=== PATIENT | male | born 1960 | race Caucasian/White ===

== ENCOUNTER 2019-04-22 23:25 | Inpatient (IN) ==
--- NOTE | 2019-04-23 00:03 | PROVIDER DOCUMENTATION ---
HPI-General Adult - General Chief Complaint: Shortness of Breath Stated Complaint: MALE Time Seen by Provider: 04/22/19 23:45 Source: patient Allergies/Adverse Reactions: Patient Allergies Allergy/AdvReac Type Severity Reaction Status Date / Time Penicillins Allergy Severe ANAPHYLAXIS Verified 04/22/19 23:37 Sulfa (Sulfonamide AdvReac Unknown Verified 04/22/19 23:37 Antibiotics) Home Medications: Home Medication List Medication Instructions Recorded Confirmed Last Taken Type NK [No Home Medications] 04/23/19 04/23/19 Unknown History - History of Present Illness -Gen Adult Nature of Presenting Problems: Patient is a 58 year old white male with methamphetamine abuse, CHF, and tobacco abuse who presents with worsening 8/10 pain and redness in his scrotum for past several days. Denies fever, chest pain. Patient reports that he has been chronically sob for past 1 year. Location of Pain/Injury: reports: genitalia (scrotum) Quality of Pain: reports: aching Onset/Duration: reports: 1 week ago Timing: reports: getting worse Associated Symptoms: reports: anxiety, shortness of breath Similar Symptoms Previously?: Yes Recently seen or treated by another doctor?: No Review of Systems - Adult - REVIEW OF SYSTEMS - ADULT Constitutional: reports: chills. denies: fever Eyes: reports: no symptoms reported Ears, Nose, Mouth & Throat: reports: no symptoms reported Cardiovascular: reports: orthopnea. denies: chest pain Respiratory: reports: shortness of breath Gastrointestinal: denies: abdominal pain, nausea, vomiting Genitourinary: reports: see HPI. denies: dysuria Integumentary: reports: skin sores/ulcer (multiple skin sores over extremities and trunk) Neurological: reports: no symptoms reported Psychiatric: reports: no symptoms reported Endocrine: reports: no symptoms reported Hematologic/Lymphatic: reports: no symptoms reported Allergic/Immunologic: reports: no symptoms reported Past History - Adult - PAST MEDICAL HISTORY-ADULT Review of Records: reports: Old Records Reviewed, Nursing Assessment Review, Medications Reviewed, Social history reviewed & non-contributory. Major Childhood Illnesses: reports: denies history Cardiovascular: reports: CHF Respiratory: reports: COPD Gastrointestinal: reports: denies history Musculoskeletal: reports: denies history Neurological: reports: denies history Psychiatric: reports: anxiety Endocrine/Immune: reports: denies history - PRIOR SURGERIES/PROCEDURES Surgical/Procedure History: reports: none - IMMUNIZATION STATUS Childhood Immunizations: See Nurse Assessment Flu Vaccine: See Nurse Assessment - FAMILY HISTORY Family History: reviewed, not pertinent - SOCIAL HISTORY Smoking: greater than 1 pack/day Substance Use: amphetamines Alcohol Use Frequency: occasionally Living Situation: family Physical Exam-General - PHYSICAL EXAM-ADULT Initial Vital Signs Reviewed: Yes - CONSTITUTIONAL General Appearance: alert, no apparent distress, other (nondiaphoretic) - EYES Eyes: other (clear) - HEAD, EARS, NOSE, MOUTH & THROAT HENMT: moist mucous membranes - NECK Neck: supple - RESPIRATORY Respiratory: no respiratory distress, no accessory muscle use, decreased breath sounds - CARDIOVASCULAR Cardiovascular: regular rate, rhythm - GASTROINTESTINAL (ABDOMEN) Abdominal Exam: other (obese, multiple sores over abdomen, nontender, no rebound or guarding) - GENITOURINARY Male Genitalia: erythema (exquisitely tender red indurated enlarged scrotum with foul odor) - MUSCULOSKELETAL Back Exam: no CVA tenderness, no vertebral tenderness Extremity: erythema (indurated red swollen lower extremities with multiple skin sores), swelling, tenderness Peripheral Pulses: radial (R): 2+, radial (L): 2+ - SKIN Integumentary: erythema, swelling, tenderness - NEUROLOGIC Neurologic: grossly normal, no motor/sensory deficits - PSYCHIATRIC Psych/Mental Status: anxious Progress - PLAN OF CARE/RESULTS Progress/Plan/Lab Results: Vital Signs - 8 hr 04/22/19 23:32 Temperature 97.9 F Pulse Rate 109 H Respiratory Rate 20 Blood Pressure 129/85 O2 Sat by Pulse Oximetry 100 Orders Category Date Time Status Cardiac Monitoring DIRECTED Care 04/22/19 23:41 Active Oxygen Therapy- ED Nursing DIRECTED Care 04/22/19 23:41 Active Saline Loc NOW Care 04/22/19 23:41 Active CHEST-2 VIEWS [RAD] Stat Exams 04/22/19 23:41 Ordered BLOOD CULTURE [BLDCUL] Stat Lab 04/22/19 23:57 Uncollected CBC WITH ELECTRONIC DIFF [HEME] Stat Lab 04/22/19 23:51 Ordered CK PROFILE [SP CHEM] Stat Lab 04/22/19 23:51 Ordered COMPREHENSIVE METABOLIC PANEL [CHEM] Stat Lab 04/22/19 23:51 Ordered PRO B-NATRIURETIC PEPTIDE Stat Lab 04/22/19 23:51 Ordered PROTIME WITH INR [COAG] Stat Lab 04/22/19 23:51 Ordered PTT [COAG] Stat Lab 04/22/19 23:51 Ordered TROPONIN T Stat Lab 04/22/19 23:51 Ordered CP/SOB/Palp >45 yrs of Age Stat Oth 04/22/19 23:41 Ordered EKG [EKG] Stat Ther 04/22/19 23:41 Ordered Result Diagrams: 04/22/19 23:51 04/22/19 23:51 - EKG 1 Time of EKG reading by physician:: 23:50 EKG Read and Signed by:: Jose Luis Smith Rate: 109 Rhythm: sinus tach ST Wave: non-specific ST changes Comments: no STEMI - CONSULTS/PCP/HOSPITALIST Notification #1 *Consult/PCP/Hospitalist*: DR. Tan, hospitalist Time Discussed: 01:20 Consult Disposition: Admit Departure - Departure Date of Disposition Decision: 04/23/19 Time of Disposition Decision: 02:05 DIAGNOSIS: Cellulitis of scrotum, Methamphetamine abuse Chronic CHF Qualifiers: Heart failure type: unspecified Qualified Code(s): I50.9 - Heart failure, unspecified Disposition: ADMITTED INPATIENT 09 Certified Medical Emergency: Emergent Condition: Stable - Critical Care Note This patient required my direct & personal management of CC.: No Attestation - Physician/ GAIL Attestation Patient care was provided by Advanced Practice Provider:: No The physician spent face to face time with patient:: Yes Advanced Practice Provider documentation review:: Supervising physician onsite and consulted in the evaluation and care of this patient. The physician did have a face to face encounter with the patient.
[2019-04-23] MEDS ORDERED: VANCOMYCIN 1 GM/NS 1 GM/250 ML IVPB IV ONE (00:14)
[2019-04-23] MEDS ORDERED: MORPHINE IV ONE (00:14)
[2019-04-23] MEDS ORDERED: ZOFRAN IV ONE (00:14)
[2019-04-23 00:44] LABS: ALBUMIN 3.6 g/dL (3.5-5.0); CALCIUM 8.5 mg/dL (8.8-10.2); CREATININE 1.5 mg/dL (0.7-1.2); POTASSIUM 4.5 mmol/L (3.5-5.1); TOTAL BILIRUBIN 1.5 mg/dL (0.20-1.00)
[2019-04-23 00:55] LABS: INR 1.17; PROTIME 15.5 Seconds (11.0-16.0); PTT 28.8 Seconds (22.3-41.8)
[2019-04-23] MEDS ORDERED: MORPHINE IV PRN (01:24)
[2019-04-23] MEDS ORDERED: ZOFRAN IV PRN (01:24)
[2019-04-23 01:27] LABS: HEMOGLOBIN 13.8 g/dL (14.0-18.0); RBC 4.29 XMIL (4.7-6.1); WBC 6.95 X1000 (4.8-10.8)
[2019-04-23 01:28] LABS: HEMATOCRIT 42.9 % (42.0-52.0); MCH 32.2 PG (27-31); MCHC 32.2 g/dL (33-37); MPV 10.2 FL (7.4-10.4); PLT 170 X1000 (130-400); RDW 15.9 % (11.5-14.5)
[2019-04-23 01:31] LABS: MONO# 0.49 X1000 (0.11-0.59)
[2019-04-23 01:32] LABS: EOS# 0.14 X1000 (0.0-0.7)
[2019-04-23] MEDS ORDERED: NORCO-5 PO PRN (03:07)
[2019-04-23] MEDS ORDERED: VANCOMYCIN IV PER PHARMACY MISC SCH (03:15)
--- NOTE | 2019-04-23 03:52 | HISTORY AND PHYSICAL ---
PRIMARY CARE PHYSICIAN: None. CHIEF COMPLAINT: Scrotum pain. HISTORY OF PRESENTING ILLNESS: A 58-year-old male with a history of CHF and hypertension presents to emergency department initially at [facility] with 1-week history of having a scrotal pain and he states that it was worsening. Patient stated his scrotum was getting more red and tender and subsequently had come to the emergency department. In the ER, he was evaluated. Symptoms consistent with cellulitis and due to lack of subspecialists care he was transferred to [facility] for further management. At the time of my examination, he states that he was in moderate to severe pain in his scrotal region, however, denied any fever chills chest pain, shortness of breath or any weight changes. PAST MEDICAL HISTORY: Includes CHF and hypertension. PAST SURGICAL HISTORY: None. ALLERGIES: Penicillin and sulfa. CURRENT MEDICATION: He does not recall and nursing staff will reconcile. SOCIAL HISTORY: A 30 pack year history of smoking. Admits to social alcohol use. Admits to occasional methamphetamine use. FAMILY HISTORY: No history of coronary disease. REVIEW OF SYSTEMS: Fourteen point review of systems as listed in HPI. Other systems negative. PHYSICAL EXAMINATION: GENERAL: Cooperative, friendly male. He is resting more comfortably now. VITAL SIGNS: Temperature 98.1 degrees, pulse 107, respiration 16, blood pressure 132/100. HEENT: Atraumatic, normocephalic. Extraocular movements intact. PERRLA. NECK: No masses. CHEST: Clear to auscultation. CARDIOVASCULAR: Regular rate and rhythm. ABDOMEN: Soft, positive bowel sounds. EXTREMITIES: +1 edema. GENITOURINARY: Moderate scrotal edema and tenderness. NEUROLOGIC: Nonfocal. SKIN: Warm. LABORATORIES AND STUDIES: WBC 6.95, hemoglobin 13.8, hematocrit 42.9, platelets 170,000. Sodium 138, potassium 4.5, chloride 102, CO2 is 25, BUN is 29, creatinine is 1.5, glucose is 120. ProBNP is 12,344. ASSESSMENT: A 58-year-old male with a history of congestive heart failure and hypertension who had presented to emergency department with a 1-week history of having scrotal pain and tenderness. He was initially evaluated at [facility] and diagnosed with cellulitis and subsequently transferred to [facility] due to lack of urology subspecialist care. 1. Scrotal cellulitis. 2. Congestive heart failure. 3. Hypertension. PLAN: 1. We will admit patient to medical floor. 2. We will start patient on IV antibiotics. 3. We will consult Urology. 4. We will continue with gentle diuresis with Lasix. 5. Monitor blood pressure. Resume antihypertensive agent. 6. We will put patient on DVT prophylaxis with SCDs. 7. We will continue to follow, and reassess and make further recommendation based on patient's clinical course. cc: Kelby Tan MD MTDD
--- NOTE | 2019-04-23 03:57 | EKG Report ---
Test Performed on : 04/22/2019 11:49:17 PM Test Reason : sob Blood Pressure : / mmHG Vent. Rate : 109 BPM Atrial Rate : 109 BPM P-R Int : 152 ms QRS Dur : 074 ms QT Int : 326 ms P-R-T Axes : 062 002 118 degrees QTc Int : 439 ms Sinus tachycardia. Possible Left atrial enlargement Nonspecific T wave abnormality Abnormal ECG When compared with ECG of 04-SEP-2018 14:01, No significant change was found Unconfirmed Result
[2019-04-23] MEDS: ROCEPHIN 1 GM in NS 50 ML IV SCH (04:43)
[2019-04-23] MEDS ORDERED: VANCOMYCIN 1,250 MG in NS 250 ML IV ONE (05:00)
--- NOTE | 2019-04-23 09:33 | Diag Imaging Result Doc PS360 ---
EXAM: CHEST-2 VIEWS - 04/22/2019 HISTORY: sob TECHNIQUE: Chest two views COMPARISON: 09/08/2018 FINDINGS: Heart size is normal. There is stable mild tortuosity of the thoracic aorta. The lungs appear clear. There is no pleural effusion or pneumothorax identified. There is some thoracic spondylosis noted. IMPRESSION: No evidence of acute disease. Electronically signed by Jose Gómez 04/23/2019 9:31 AM
[2019-04-23] MEDS: XOPENEX NEB INH PRN ×3 (11:35→23:55)
--- NOTE | 2019-04-23 11:38 | CONSULTATION ---
DATE OF CONSULTATION: 04/23/2019 CONSULTING PHYSICIAN: Dr. Smith REASON FOR CONSULTATION: Scrotal abscess. HISTORY OF PRESENT ILLNESS: 58-year-old male without previous urologic history. He presents with 1-week history of scrotal pain and swelling. He reports he was working in the yard and thought he had chigger bites in his right groin. Then he reports overnight swelling to place. He denies definitive trauma. He denies similar episodes in the past. He does have CHF and reports intermittent lower extremity swelling which he self medicates with the Lasix he obtains through his cousin. He does not see regular medical doctor. He denies purulent discharge or fevers. He mainly complains of the pain and swelling. PAST MEDICAL HISTORY: Hypertension, CHF. PAST SURGICAL HISTORY: None. ALLERGIES: Sulfa and penicillin. HOME MEDICATIONS: Lasix and antihypertensive which name he does not recall. Again, he reports he obtains his medications from his cousin who also has CHF and hypertension and does not see doctors on a regular basis. SOCIAL HISTORY: He has smoked over a pack a day for 30+ years and continues to do so. He consumes alcohol. He uses methamphetamines. FAMILY HISTORY: Negative for malignancies. REVIEW OF SYSTEMS: Reviewed and 12 systems negative except for the HPI. PHYSICAL EXAMINATION: Temperature 97.4 degrees, pulse 99, blood pressure 133/86. General: No acute distress. HEENT:Normocephalic, atraumatic. Cardiovascular: Rate regular rate and rhythm. Pulmonary: Decreased bilateral breath sounds. Abdomen: Protuberant, nontender to palpation. No guarding and bowel sounds are normal. He has an umbilical hernia without evidence of incarceration. Back: No CVA tenderness. : His suprapubic area is firm to touch but no erythema or crepitants noted. His has got substantial scrotal edema without evidence of erythema fluctuance or crepitus. It appears that from edema he has some serous fluid seeping into his underwear. Again, I do not appreciate fluctuance or purulent drainage. There is no extension of the swelling to his perineum. Rectal: Deferred by patient. His penis is buried secondary to the edema. He obviously has redundant foreskin. Dermatologic: No obvious skin rashes. Neurologic: Alert and oriented x3. Psychiatric: Appropriate mood and affect. PERTINENT LABORATORY DATA: White cell count was 7000 on 04/22/2019. Creatinine is 1.5. Pertinent images none. ASSESSMENT AND PLAN: A 58-year-old male with scrotal cellulitis. He does not have any evidence of Karissa gangrene or definitive abscess at this time. I have discussed with the patient that his options are conservative observation with IV antibiotics versus incision and debridement of the scrotum. I am concerned he has suprapubic tenderness and firmness. I have discussed with the patient that he would recover faster if he were to have undergo incision debridement. He feels strongly against any surgical intervention at this point. I have discussed with him that if his condition were to progress to fulminant abscess or Karissa gangrene he would have to undergo more extensive surgery or staged surgeries. He voiced understanding and still states he does not want any surgery done at this point. PLAN: 1. Per patient wishes will observe and not proceed with incision and debridement for now. 2. Continue vancomycin, Rocephin per hospitalist service. 3. Will assess patient tomorrow. Thank for the consultation. cc: Santi Cortez MD
--- NOTE | 2019-04-23 11:47 | PROGRESS NOTE ---
DATE: 04/23/2019 SUBJECTIVE: This morning, Mr. Del Angel referred to be feeling a lot better. He said his scrotal swelling seems to be going down. OBJECTIVE: Vital Signs: Blood pressure is 122/73, pulse of 98, respirations 18, temperature is 98 degrees, the patient was saturating 99% on room air. General: Mr. Del Angel is a 58-year-old gentleman. He is in bed. He is no cardiopulmonary distress. HEENT: Mucosa is pink and moist. Anicteric. Acyanotic. Neck: Supple. There is positive JVD. Respiratory: Air entry is bilaterally reduced. There are diffuse bilateral wet crackles in both lung dobson. The patient did have some diffuse wheezing as well. Cardiovascular: Regular rate and rhythm. [place] beat seems to be at fifth intercostal space, midclavicular line. No murmurs, no rubs. Abdomen: Soft, nontender. Bowel sounds present. Extremities: About 3+ pedal edema. Distal pulses are present. : Scrotum is remarkably swollen, but no tenderness. It appears just to be part of the generalized edema process. IMAGING: A chest x-ray this morning shows no evidence of acute disease. ASSESSMENT: 1. Anasarca secondary to congestive heart failure. 2. Acute on chronic congestive heart failure. The patient's previous echocardiogram from 2018 shows ejection fraction of 25% with severely reduced systolic function. 3. Severe dilated cardiomyopathy, probably nonischemic. However, I do not see any ischemic workup on his file. We will get Cardiology to evaluate him, and then go from there. 4. Scrotal swelling. The patient has been started on antibiotics. He thinks he is looking better. I am not sure if there was any superimposed cellulitis to the scrotal swelling, but this morning, the scrotal swelling just seems to be part of the whole anasarca picture. We are pending Urology to evaluate the patient as well. 5. Tobacco abuse. The patient has been counseled. 6. History of drug use (methamphetamine). The patient has been counseled. This morning, we are going to start Mr. Del Angel on intravenous Lasix, also losartan. When he is euvolemic, we will start him also on a beta olena. We will get an echocardiogram, and then also get Cardiology to evaluate him. He is currently on antibiotics. I have discontinued the vancomycin, and will be pending Urology evaluation on his scrotal cellulitis. cc: Brody Dias MD
[2019-04-23] MEDS: COZAAR PO SCH (13:37)
[2019-04-23] MEDS: LASIX IV SCH ×2 (13:37→23:01)
[2019-04-23 15:56] LABS: URINE SOURCE CLEAN CATCH
[2019-04-23 16:05] LABS: BILIRUBIN URINE NEGATIVE (NEGATIVE); BLOOD URINE NEGATIVE (NEGATIVE); COLOR YELLOW; GLUCOSE URINE NEGATIVE (NEGATIVE); KETONE URINE NEGATIVE (NEGATIVE); LEUKOCYTES URINE NEGATIVE (NEGATIVE); NITRITE URINE NEGATIVE (NEGATIVE); PROTEIN URINE 30 mg/dL (NEGATIVE); SP GRAVITY URINE 1.013; TURBIDITY URINE CLEAR (CLEAR); UROBILINOGEN URINE NORMAL (NORMAL)
[2019-04-23 16:07] LABS: UR EPITHELIAL CELLS <10 /HPF (<10); URINE BACTERIA NEGATIVE /HPF; URINE RBC <10 /HPF (<10); URINE WBC <10 /HPF (<10)
--- NOTE | 2019-04-23 16:26 | CONSULTATION ---
DATE OF CONSULTATION: 04/23/2019 IMPRESSION: 1. Acute on chronic systolic heart failure, biventricular with right greater than left, and associated edema, as well as scrotal edema and possible ascites. 2. Severe cardiomyopathy with left ventricular ejection fraction by echocardiography 1 year ago. 3. Hypertension. 4. Medical noncompliance. 5. Polysubstance abuse with history of methamphetamine use as well as previous history of heavy alcohol use in the past. Patient reported only drinks modest amounts of alcohol currently. 6. Chronic cigarette use, ongoing. RECOMMENDATIONS: 1. Agree with losartan being initiated. 2. Diurese with intravenous Lasix. 3. Repeat echocardiography. HISTORY: This 58-year-old white male with a past history of severe cardiomyopathy with left ventricular ejection fraction by echocardiography last year was admitted with scrotal pain and swelling. He was found to have evidence of congestive heart failure and cardiology was consulted. He was hospitalized 1 year ago or so with congestive heart failure. He was hospitalized at [facility] here in [place]. Echocardiography indicated left ventricular ejection fraction of 25%. He was diuresed and started on heart failure medical regimen. He was discharged thereafter to have follow up with cardiology. However, he did not follow up with Cardiology and has been without prescriptions for some time. He indicates that he has been getting some occasional Lasix from his family. He has chronic edema as well as exertional shortness of breath consistent with [place] Heart Association class 3 status. A week ago he started having scrotal edema and discomfort. This progressed, prompting him to come in. He is felt to have scrotal cellulitis. He is being treated with parenteral antibiotics. He relates he only drinks infrequent alcoholic beverage and he has a past history of heavy alcohol use. He uses methamphetamine occasionally. He smokes 1 pack of cigarettes per day and previously smoked 2 packs of cigarettes per day. PAST MEDICAL HISTORY: 1. Cardiomyopathy. 2. Hypertension. ALLERGIES: Penicillin and sulfa. MEDICATIONS: He was on no medications prior to admission other than occasional Lasix which he obtained from his brother. SOCIAL HISTORY: He has a history of heavy cigarette use for many years and currently smokes 1 pack of cigarettes per day. He drinks occasional alcoholic beverage. He has a history of heavy alcohol use in the past. He also uses methamphetamine occasionally. 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 FAMILY HISTORY: Negative for premature coronary disease. REVIEW OF SYSTEMS: Pulmonary: Noteworthy for exertional shortness of breath but negative for orthopnea. Gastrointestinal: Negative. Constitutional: Negative. Remainder of review of systems negative/noncontributory with 14 total systems reviewed. PHYSICAL EXAMINATION: General: This is a middle-aged white male in no acute distress, on room air. Vital signs: Blood pressure 133/88, heart rate 92 and regular, oxygen saturation 98% on room air. HEENT: Extraocular muscles appear intact. Mucous membranes are moist. Neck: Supple. Jugular distention is evident, consistent with significantly elevated central venous pressure. There are no carotid bruits. Chest: Clear to auscultation. Cardiac: Reveals a regular rate and rhythm without appreciable murmur or gallop. Abdomen: Soft. Bowel sounds are normal. Extremities: Demonstrate 2+ to 3+ edema with significant induration, consistent with chronic edema. Neurologic: Reveals him to be alert and fully oriented. Speech is fluent. He moves all 4 extremities equally well. Skin: Warm and dry. DIAGNOSTIC DATA: Twelve lead EKG demonstrates sinus tachycardia, left atrial abnormality, and nonspecific T-wave abnormality. LABORATORY DATA: Includes white blood cell count 6.95, hematocrit 42.9, hemoglobin 13.8, MCV 100, platelet count 170,000. Sodium 138, potassium 4.5, chloride 102, carbon dioxide 25, BUN 29, creatinine 1.5. Troponin T less than 0.01. Pro B-natriuretic peptide level 12,344. Albumin 3.6. cc: Ellis Bal MD
[2019-04-23 16:37] LABS: UR AMPHETAMINES QUAL PRESUMPTIVE POSITIVE (NONE DETECT); UR BARBITUATES QUAL NONE DETECTED (NONE DETECT); UR BENZODIAZEPIN QUAL NONE DETECTED (NONE DETECT); UR COCAINE QUAL NONE DETECTED (NONE DETECT); UR OPIATES QUAL PRESUMPTIVE POSITIVE (NONE DETECT)
[2019-04-23 16:38] LABS: UR CANNABINOIDS QUAL NONE DETECTED (NONE DETECT); UR METHADONE QUAL NONE DETECTED (NONE DETECT); UR OXYCODONE QUAL NONE DETECTED (NONE DETECT); UR PCP QUAL NONE DETECTED (NONE DETECT)
[2019-04-24] MEDS ORDERED: VANCOMYCIN 2,000 MG in NS 500 ML IV SCH (05:00)
[2019-04-24] MEDS: ROCEPHIN 1 GM in NS 50 ML IV SCH (05:45)
[2019-04-24 07:27] LABS: BASO# 0.04 X1000 (0.0-0.2); BASO% 0.5 % (0.0-0.8); EOS# 0.22 X1000 (0.0-0.7); HEMATOCRIT 42.7 % (42.0-52.0); HEMOGLOBIN 13.7 g/dL (14.0-18.0); LYMPH# 0.93 X1000 (1.2-3.4); LYMPH% 12.6 % (20.5-51.1); MCH 32.2 PG (27-31); MCHC 32.1 g/dL (33-37); MCV 100.2 FL (81-99); MONO% 13.5 % (1.7-9.3); MPV 10.3 FL (7.4-10.4); NEUT# 5.21 X1000 (1.4-6.5); NEUT% 70.4 % (42.2-75.2); PLT 178 X1000 (130-400); RBC 4.26 XMIL (4.7-6.1); RDW 15.6 % (11.5-14.5)
[2019-04-24 07:43] LABS: AGAP 10; BUN 30 mg/dL (8-22); CALCIUM 8.3 mg/dL (8.8-10.2); CHLORIDE 96 mmol/L (98-107); CHOLESTEROL 123 mg/dL (0-200); COSMO 278; CREATININE 1.5 mg/dL (0.7-1.2); ESTIMATED GFR 48; GLUCOSE 93 mg/dL (70-104); HDL 41 mg/dL (35-55); LDL 73 mg/dL; POTASSIUM 4.2 mmol/L (3.5-5.1); SODIUM 136 mmol/L (136-145); TCO2 30 mmol/L (25-35); TRIGLYCERIDES 46 mg/dL (39-160); VLDL 9 mg/dL
[2019-04-24] MEDS: XOPENEX NEB INH PRN ×3 (07:49→16:00)
[2019-04-24] MEDS: COZAAR PO SCH (09:58)
[2019-04-24] MEDS: LASIX IV SCH ×2 (10:27→22:46)
--- NOTE | 2019-04-24 14:22 | PROGRESS NOTE ---
DATE: 04/24/2019 SUBJECTIVE: This morning Mr. Del Angel refers to be feeling a little better. Shortness of breath is getting better and scrotal swelling seems to also been getting better. OBJECTIVE: Vitals: Blood pressure is 115/66, pulse of 93, respiration is 16, temperature 98.1 degrees. General: Mr. Del Angel is a 58-year-old gentleman he is in bed, no distress. Mucosa is pink and moist. Anicteric. Acyanotic. Neck: Supple. Chest: Air entry is bilateral reduced. There is still some diffuse crackles in both lung dobson posteriorly. There is also some wheezing as well. Cardiovascular: Regular rate and rhythm. Abdomen: Soft, minimally distended but nontender. Bowel sounds present. Extremities: About 2+ pedal edema. : Scrotum continues to be remarkably swollen but no tenderness. Minimum erythematous changes but no fluctuance. There is some seeping of fluid into the underwear. 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 LABORATORY DATA: CBC is reviewed unremarkable except for microcytosis. Chemistries reviewed, creatinine continues to be 1.5. ASSESSMENT: 1. Anasarca secondary to congestive heart failure. The patient continues to be on diuretic therapy. 2. Acute on chronic congestive heart failure. Previous echocardiogram showed an ejection fraction of 25%. We still pending a repeat echocardiogram today. 3. Severe dilated cardiomyopathy probably nonischemic. Cardiology is on board. Will follow up with their further recommendations. 4. Scrotal swelling most likely related to the generalized anasarca. 5. Tobacco abuse. Patient has been counseled. 6. History of drug abuse (methamphetamine) patient counseled. 7. Renal failure seems to be acute on chronic. We are going to continue to keep eye on the creatinine. So for today we going to continue with the diuretic therapy. Patient is also on antibiotics for suspicion of cellulitis to the scrotum. Patient is being seen by Cardiology and Urology, we are going to continue further recommendations from them. Will repeat his electrolytes tomorrow. Will also continue to observe strict I's and O's. cc: Brody Dias MD MTDJolanta
--- NOTE | 2019-04-24 15:22 | PROGRESS NOTE ---
DATE: 04/24/2019 SUBJECTIVE: Patient denies shortness of breath. He denies chest pain. He continues on room air. He reports vigorous diuresis. I's and O's not adequately recorded. Specifically, urine output not recorded. OBJECTIVE: Vital Signs: Blood pressure 115/66, heart rate 93, oxygen saturation 100% on room air. Neck: Significant jugular venous distention is still present consistent with significantly elevated central venous pressure. Chest: Clear to auscultation bilaterally. Cardiac: Reveals a regular rate and rhythm without appreciable murmur or gallop. Extremities: Demonstrate moderate to severe lower extremity edema with some woody edema consistent with chronic edematous state. LABORATORY DATA: White blood cell count of 7.4, hematocrit 42.7, hemoglobin 13.7, platelet count 178,000. Sodium 136, potassium 4.2, chloride 96, carbon dioxide 30, BUN 30, creatinine 1.5, glucose 93. Triglycerides 46, total cholesterol 123, LDL cholesterol 73, HDL cholesterol 41. Urine drug screen obtained on admission, positive for opiates and amphetamines. IMPRESSIONS: 1. Acute on chronic systolic heart failure, biventricular with right-sided failure greater than left, associated edema as well as scrotal edema and possible ascites. 2. Severe cardiomyopathy. 3. Hypertension. 4. Medical noncompliance. 5. Polysubstance abuse. 6. Chronic cigarette use. RECOMMENDATIONS: 1. Continue diuresis with intravenous Lasix. 2. Continue losartan. 3. Follow up echocardiography. 4. Add low-dose metoprolol. cc: Ellis Bal MD
[2019-04-24] MEDS: TOPROL XL PO SCH (16:24)
--- NOTE | 2019-04-25 00:08 | ECHO REPORT ---
ORDER DATE: 04/23/2019 MEASUREMENTS: Septal thickness 1.4, left ventricular internal diameter diastole 4.4, posterior wall thickness 1.4, aortic root 3.0, left atrium 3.9. SUMMARY: 1. Fair quality study. 2. Aortic valve is trileaflet and opens normally on 2-dimensional images. Peak gradient across aortic valve is less than 5 mmHg. Mitral, tricuspid and pulmonic valves are without evidence of structural abnormality. There is moderate tricuspid regurgitation. The estimated systolic PA pressure by Doppler is 40 mmHg suggesting mild pulmonary hypertension. Aortic root is normal in size. 3. Normal left ventricular chamber size with mild concentric left hypertrophy is demonstrated. Estimated left ejection fraction approximately 25% in the setting of global hypokinesis. Left atrium is mildly enlarged. The right atrium is moderately enlarged. The right ventricle is mild to moderately enlarged with moderately reduced right ventricular systolic function. 4. Small posterior pericardial effusion demonstrated. 5. Appearance of inferior vena cava suggests significantly elevated central venous pressure. cc: MD Brody Will MD
[2019-04-25] MEDS: ROCEPHIN 1 GM in NS 50 ML IV SCH (04:56)
[2019-04-25 08:00] LABS: AGAP 9; ALBUMIN 3.1 g/dL (3.5-5.0); BUN 24 mg/dL (8-22); CALCIUM 8.4 mg/dL (8.8-10.2); CHLORIDE 96 mmol/L (98-107); COSMO 278; CREATININE 1.2 mg/dL (0.7-1.2); ESTIMATED GFR > 60; GLUCOSE 97 mg/dL (70-104); IRON SATURATION 37 %; PHOSPHORUS 3.6 mg/dL (2.7-4.5); POTASSIUM 4.2 mmol/L (3.5-5.1); SODIUM 137 mmol/L (136-145); TCO2 32 mmol/L (25-35); TIBC 295 ug/dL; TOTAL IRON 109 ug/dL (53-167); UNBOUND IRON 186 ug/dL (112-346)
[2019-04-25] MEDS: XOPENEX NEB INH PRN ×3 (08:04→19:30)
[2019-04-25 08:35] LABS: TSH 2.93 uIUmL (0.27-4.20)
[2019-04-25] MEDS: TOPROL XL PO SCH (08:57)
[2019-04-25] MEDS: LASIX IV SCH ×2 (08:58→20:49)
[2019-04-25] MEDS: COZAAR PO SCH (08:58)
--- NOTE | 2019-04-25 12:49 | PROGRESS NOTE ---
DATE: 04/25/2019 SUBJECTIVE: This morning, Mr. Del Angel refers to be doing a whole lot better. He thinks the swelling is going down. Denies any complaint. OBJECTIVE: Vital Signs: Blood pressure is 100/59, pulse of 90, respirations are 20, temperature is 97.9 degrees. General Examination: Mr. Del Angel is a 58-year-old, male. He is in bed, not seemingly distressed. HEENT: Mucosa is pink and moist. Anicteric. Acyanotic. Neck: Supple. Mild JVD this morning. Chest: Air entry is bilaterally reduced. A few crackles posteriorly but it sounds a lot better than yesterday. Cardiovascular: Regular rate and rhythm. No murmurs, no rubs, no gallops. GI: Abdomen is soft. It is distended but nontender. Bowel sounds present. Extremities: About 2+ pedal edema. Scrotum is also swollen but seems to be shrinking some. 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 Laboratory Data: Chemistry is reviewed. The creatinine has normalized. So far, blood cultures have been negative. ASSESSMENT: 1. Anasarca secondary to congestive heart failure. Patient continues to be on diuretic therapy. We are going to add oral spironolactone. 2. Acute on chronic congestive heart failure. Echocardiogram shows an ejection fraction of 25% in the setting of global hypokinesis which is pretty much the same as the one done in December 2017. 3. Severe dilated cardiomyopathy, probably nonischemic. Cardiology is on board. We will follow up with further recommendations from them. 4. Scrotal swelling, most likely due to the generalized anasarca. I think the mild erythematous changes were all just as a result of the swollen scrotum. It does not appear to be infected. At this point, I would discontinue the antibiotics. 5. Tobacco abuse. The patient has been counseled. 6. History of drug abuse (amphetamine). 7. Acute kidney injury, has resolved. PLAN: In general, Mr. Del Angel seems to be doing a lot better. He diuresed about 750 yesterday. He has a negative balance of just 200. I am not sure if this is a true documentation of what his Is and Os are but in general, he seems to be doing a lot better. We are going to continue with the current medications, IV diuretics. I am going to add Aldactone to enhance the loop diuretic effect. cc: Brody Dias MD
[2019-04-25 13:37] LABS: HEPATITIS PROFILE ACUTE SEE COMMENTS
[2019-04-25] MEDS: ALDACTONE PO SCH (13:39)
[2019-04-26] MEDS: ROCEPHIN 1 GM in NS 50 ML IV SCH (04:49)
[2019-04-26] MEDS: TOPROL XL PO SCH (09:53)
[2019-04-26] MEDS: LASIX IV SCH ×2 (09:53→20:33)
[2019-04-26] MEDS: COZAAR PO SCH (09:53)
[2019-04-26] MEDS: ALDACTONE PO SCH (09:53)
--- NOTE | 2019-04-26 11:27 | PROGRESS NOTE ---
DATE: 04/25/2019 SUBJECTIVE: Mr. Del Angel reports no events overnight. He states he still has scrotal discomfort, but his swelling is down some. He still feels strongly against any surgical intervention if possible. OBJECTIVE: Vital Signs: T 97.9 degrees, P 90, BP 100/59. General: No acute distress. Abdomen: Protuberant, nontender to palpation. : Persistently edematous scrotum. His suprapubic firmness has improved. There was no evidence of fluctuance, crepitus or purulent discharge noted. PERTINENT LABORATORY DATA: None today. ASSESSMENT AND PLAN: A 58-year-old male with scrotal cellulitis, as well as edema, who has mildly improved on intravenous antibiotics. Again, there is no evidence of Karissa gangrene or definitive abscess. The patient once again continues to feel strongly about conservative observation and feels strongly against surgery. PLAN: 1. Continue antibiotics per primary team. 2. We will observe for now. cc: Santi Cortez MD
[2019-04-26] MEDS ORDERED: PREDNISONE PO ONE (12:18)
--- NOTE | 2019-04-26 14:55 | PROGRESS NOTE ---
DATE: 04/26/2019 SUBJECTIVE: This morning Mr. Del Angel refers to be doing a whole lot better. He thinks swelling is remarkably improving. However, he still has some wheezing. OBJECTIVE: Vital Signs: Blood pressure 119/73, pulse of 100, respirations 18, and temperature 97.7 degrees. General: Mr. Del Angel is a 58-year-old gentleman. He was in bed no distress. HEENT: Mucosa is pink and moist. Anicteric. Acyanotic. Neck: Supple. Chest: Air entry is bilaterally reduced. There are still some end expiratory wheezing. No crackles. Cardiovascular: Regular rate and rhythm. No murmurs. Abdomen: Soft, distended, but nontender. There is positive fluid shift. Extremities: About 1+ pedal edema. Scrotum swelling has significantly improved. 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 LABORATORY DATA: Reviewed. The patient's iron studies are within normal range and B12 and folate are normal. ASSESSMENT: 1. Anasarca on presentation secondary to congestive heart failure with reduced ejection fraction improved. 2. Acute on chronic heart failure with ejection fraction of 25% in the setting of global hypokinesis. The patient's EF has remained fairly stable since last year. 3. Severe dilated cardiomyopathy, probably nonischemic. Cardiology is on board. 4. Scrotal swelling, most likely due to the generalized anasarca with possible mild scrotal cellulitis. The patient is on antibiotics. Urology prefers to continue with that. We will continue. 5. Tobacco abuse. Patient has been counseled. 6. History of drug abuse, counseled. 7. Acute kidney injury, resolved, probably due to cardiorenal syndrome. 8. Bronchospasm, most likely COPD exacerbation. The patient is already on nebulization and antibiotics. I will start him on oral steroid therapy. PLAN: In general, Mr. Del Angel is doing a lot better. His swelling has remarkably improved. His current urine output was about 2275 last night. He is currently negative balance, and he is losing weight. He is clinically improving. We are going to continue with the current IV diuretics for another day, and hopefully we can switch it to something to oral regimen and get him home hopefully tomorrow. cc: Brody Dias MD
[2019-04-26] MEDS: XOPENEX NEB INH PRN ×2 (15:41→19:33)
--- NOTE | 2019-04-26 20:24 | PROGRESS NOTE ---
DATE: 04/26/2019 SUBJECTIVE: Patient denies shortness of breath or chest discomfort on room air. He reports feeling better. OBJECTIVE: Vital Signs: Blood pressure 118/61, heart rate 95, oxygen saturation 100% on room air. Neck: Jugular venous distention appears to have decreased and appears to be upper normal to mildly elevated. Chest: Clear to auscultation bilaterally. Cardiac Exam: Reveals a regular rate and rhythm without appreciable murmur or gallop. Extremities: Demonstrate trace to mild edema with stasis changes. LABORATORY DATA: Includes sodium 137, potassium 4.2, chloride 96, carbon dioxide 32, BUN 24, creatinine 1.2. Albumin 3.1. IMPRESSION: 1. Acute on chronic systolic heart failure, biventricular with right ventricular failure greater than left ventricular failure. The patient has improved with diuresis. 2. Severe cardiomyopathy. 3. Hypertension. 4. Medical noncompliance. 5. Polysubstance abuse. 6. Chronic cigarette use. RECOMMENDATIONS: 1. Transition to oral Lasix. 2. Continue losartan. 3. Add low-dose Coreg. Continue low-dose metoprolol. 4. Continue spironolactone. 5. Reasonable for patient to be discharged home in the next 24 hours. cc: Ellis Bal MD
--- NOTE | 2019-04-27 03:21 | PROGRESS NOTE ---
DATE: 04/26/201 SUBJECTIVE: Mr. Del Angel denies events overnight. He reports his scrotal swelling and pain have significantly improved. OBJECTIVE: Vital signs: T 97.7 degrees, P 100, BP 119/73. General: No acute distress. Abdomen: Scaphoid, nontender to palpation. Genitourinary: His scrotal edema is nearly resolved, he no longer has suprapubic firmness. Still no evidence of crepitus or fluctuance noted. His testes are bilateral without masses appreciated. PERTINENT LABORATORY DATA: None today. ASSESSMENT AND PLAN: A 58-year-old male who with scrotal cellulitis, which has responded well to observation and antibiotics. He has been on Rocephin. I have discussed with the patient that he is unlikely to need urologic intervention unless his condition were to worsen, and that it is reasonable for him to be discharged home. I would recommend sending him home with Keflex or clindamycin, Keflex being the likely better choice given his tolerance of Rocephin. PLAN: 1. No further intervention needed at this time. 2. I recommend a week of antibiotics, if okay with Dr. Dias. 3. Patient is welcome to make an appointment with me in clinic if he so desires within 1 to 2 weeks. cc: Santi Cortez MD
[2019-04-27] MEDS: ROCEPHIN 1 GM in NS 50 ML IV SCH (05:53)
[2019-04-27 07:53] LABS: HEMATOCRIT 46.3 % (42.0-52.0); HEMOGLOBIN 15.2 g/dL (14.0-18.0); MCH 32.9 PG (27-31); MCHC 32.8 g/dL (33-37); MCV 100.2 FL (81-99); MPV 10.7 FL (7.4-10.4); RBC 4.62 XMIL (4.7-6.1); RDW 15.5 % (11.5-14.5); WBC 10.95 X1000 (4.8-10.8)
[2019-04-27] MEDS: TOPROL XL PO SCH (08:12)
[2019-04-27] MEDS: ALDACTONE PO SCH (08:13)
[2019-04-27] MEDS: COZAAR PO SCH (08:13)
[2019-04-27 08:34] LABS: AGAP 12; ALBUMIN 3.5 g/dL (3.5-5.0); BUN 27 mg/dL (8-22); CALCIUM 8.9 mg/dL (8.8-10.2); CHLORIDE 93 mmol/L (98-107); COSMO 280; ESTIMATED GFR > 60; GLUCOSE 109 mg/dL (70-104); PHOSPHORUS 4.2 mg/dL (2.7-4.5); POTASSIUM 3.9 mmol/L (3.5-5.1); SODIUM 137 mmol/L (136-145); TCO2 32 mmol/L (25-35)
--- NOTE | 2019-04-27 08:39 | Diag Imaging Result Doc PS360 ---
EXAM: CHEST-2 VIEWS 04/27/2019 HISTORY: hypoxia TECHNIQUE: PA and lateral chest COMMENT: The heart size and primary vascularity are within normal limits. There may be some thickening or a small amount of fluid in the minor fissure on the right otherwise are has been no significant change since 04/22/2019. IMPRESSION: The possibility of a very small pleural effusion on the right cannot be excluded. Electronically signed by Karlo Pathak 04/27/2019 8:37 AM
[2019-04-27] MEDS: XOPENEX NEB INH PRN ×2 (08:43→11:11)
[2019-04-27] MEDS ORDERED: LASIX PO SCH (09:00)
[2019-04-27] MEDS ORDERED: PREDNISONE PO SCH (09:00)
[2019-04-27 11:31] VITALS: BP 112/62
[2019-04-27 13:33] LABS: HCV BY PCR SEE COMMENTS
--- NOTE | 2019-04-27 22:11 | DISCHARGE SUMMARY ---
ADMISSION DATE: 04/23/2019 DISCHARGE DATE: 04/27/2019 DISPOSITION: Is to home. FOLLOW-UP: 1. Dr. Bal. 2. Dr. Cortez. CONSULTATION DURING THIS ADMISSION: Cardiology was consulted. Patient was seen by Dr. Bal. Urology was consulted. Patient was seen by Dr. Cortez. INVASIVE PROCEDURES DONE DURING THIS ADMISSION: None. IMAGING STUDIES OF SIGNIFICANCE: 1. A chest x-ray initially showed no evidence of acute disease. 2. Echocardiogram did show ejection fraction of 25% with global hypokinesis. 3. A repeat chest x-ray showed possibility of very small pleural effusions. ADMISSION DIAGNOSES: 1. Scrotal cellulitis. 2. Congestive heart failure. 3. Hypertension. DIAGNOSIS AT THE TIME OF DISCHARGE: 1. Anasarca on presentation secondary to congestive heart failure with reduced ejection fraction. 2. Acute on chronic congestive heart failure with ejection fraction of 25% in the setting of global hypokinesis. 3. Severe dilated cardiomyopathy, probably nonischemic. 4. Scrotal swelling in the setting of general generalized anasarca with possible superimposed cellulitis. This has significantly improved. The patient was evaluated by urology. 5. Tobacco abuse. Patient has been counseled. 6. History of recreational drug use. 7. Acute kidney injury presumably cardiorenal syndrome. Resolved. 8. Chronic obstructive pulmonary disease with mild exacerbation. Improved. DISCHARGE MEDICATIONS: 1. Spironolactone 25 mg p.o. daily. 2. Furosemide 40 mg p.o. daily. 3. Prednisone 20 mg p.o. daily for 5 days. 4. Spiriva inhaler. 5. Metoprolol 12.5 daily. 6. Azithromycin 250 p.o. daily. 7. Doxycycline 100 mg p.o. b.i.d. 8. Losartan mg p.o. daily. 9. Albuterol inhaler as needed. PRESENTING COMPLAINT: Scrotum pain. HISTORY OF PRESENT COMPLAINT: Mr. Del Angel is a 58-year-old gentleman who is known to have CHF, hypertension presented to presented to the hospital because off generalized swelling, more remarkably in his scrotum associated with some erythematous changes. He initially presented to [facility] and was transferred to [facility] for higher level of care. HOSPITAL COURSE: Mr. Del Angel was admitted to the medical floor under tele monitoring. He was started on IV diuretic therapy and IV antibiotics. Cardiology and urology were consulted. Throughout the hospital course, Mr. Del Angel continues to have a negative fluid balance, swelling continues to reduce. His scrotal swelling remarkably improve. This morning it is completely gone. The possible superimposed cellulitis has also significantly improved. The patient was evaluated by Dr. Cortez, the urologist, throughout the hospital course. The patient was also seen by Dr. Bal, the fish housekeeper, who made some changes to the patient's medications and he tolerated all that during the hospital course. This morning, Mr. Del Angel refers to be feeling a lot better. He is currently 1950- balance. His vitals are stable with a blood pressure of 112/62, pulse of 105, respirations 16, temperature 98.0 degrees. Patient is saturating 97% on room air. PHYSICAL EXAM: Shows some 1+ pedal edema. Scrotal swelling is completely gone. The wheezing and the chest findings have all resolved we think Mr. Del Angel is clinically stable for discharge. Unfortunately Mr. Del Angel does not have any insurance or outpatient follow-up, so case management have been consulted to provide any services that he could be needing on an outpatient basis to help get a physician as well as medication assistance. Mr. Del Angel will also follow up with Cardiology and with Urology. TIME SPENT FOR DISCHARGE: 36 minutes. cc: MD Santi Morel MD William D. Denney, MD
== END 2019-04-27 16:00 | disposition home or self-care (01) | DRG 291 ==
LOC: P.ED 23:25 → 3N 23:25 → SUATTDRO 04-23 01:41 → OBSVTOIN 04-23 01:41
PROVIDERS: ATTEND Internal Medicine
CPT/HCPCS: 71020; 71046; 80048; 80053; 80061; 80069; 80074; 80101; 80301; 80307; 80320; 80324; 80345; 80346; 80353; 80358; 80361; 80365; 81001; 82055; 82550; 82607; 82728; 82746; 83540; 83550; 83605; 83880; 83992; 84443; 84484; 85025; 85027; 85610; 85730; 87040; 87522; 93005; 93306; 94640; 94761; 96365; 96366; 96375; 99285; A9270; G0431; G0434; G0479; G0480; G6040; J0696; J1940; J2270; J2405; J3370; J7050; J7506; J7512

== ENCOUNTER 2019-10-26 21:07 | Inpatient (IN) ==
[2019-10-26 23:48] LABS: BASO# 0.03 X1000 (0.0-0.2); BASO% 0.4 % (0.0-0.8); EOS# 0.08 X1000 (0.0-0.7); HEMOGLOBIN 13.9 g/dL (14.0-18.0); IMM GRAN# 0.02 X1000 (0.0-0.04); IMM GRAN% 0.2 % (0.0-0.5); LYMPH# 1.46 X1000 (1.2-3.4); LYMPH% 17.5 % (20.5-51.1); MCH 30.6 PG (27-31); MCHC 32.3 g/dL (33-37); MCV 94.7 FL (81-99); MONO# 1.05 X1000 (0.11-0.59); MONO% 12.6 % (1.7-9.3); MPV 11.1 FL (7.4-10.4); NEUT# 5.71 X1000 (1.4-6.5); NEUT% 68.3 % (42.2-75.2); PLT 184 X1000 (130-400); RBC 4.54 XMIL (4.7-6.1); RDW 15.4 % (11.5-14.5); WBC 8.35 X1000 (4.8-10.8)
[2019-10-27 00:13] LABS: ALBUMIN 3.9 g/dL (3.5-5.0); CALCIUM 8.8 mg/dL (8.8-10.2); CREATININE 2.5 mg/dL (0.7-1.2); POTASSIUM 4.8 mmol/L (3.5-5.1); TOTAL BILIRUBIN 3.4 mg/dL (0.20-1.00); TOTAL PROTEIN 7.7 g/dL (6.3-8.3)
[2019-10-27 00:26] LABS: CK INDEX 6.5 (0.0-2.5); CK-MB 14.93 ng/mL (0.0-5.0)
[2019-10-27] MEDS ORDERED: LASIX IV ONE (00:36)
--- NOTE | 2019-10-27 00:48 | PROVIDER DOCUMENTATION ---
This chart was entered by Thais Mckeon Scribe, acting as scribe for Monroe Fofana MD. HPI-General Adult - General Chief Complaint: Extremity Pain Stated Complaint: FOOT COMPLAINT Time Seen by Provider: 10/26/19 21:28 Source: patient Allergies/Adverse Reactions: Patient Allergies Allergy/AdvReac Type Severity Reaction Status Date / Time Penicillins Allergy Severe ANAPHYLAXIS Verified 04/22/19 23:37 Sulfa (Sulfonamide AdvReac Unknown Verified 04/22/19 23:37 Antibiotics) Home Medications: Home Medication List Medication Instructions Recorded Confirmed Last Taken Type Furosemide [Lasix] 40 mg PO DAILY #120 tab 04/27/19 10/26/19 Unknown Rx Losartan [Cozaar] 50 mg PO DAILY #240 tab 04/27/19 10/26/19 Unknown Rx Metoprolol Succinate E.r. [Toprol 12.5 mg PO DAILY #120 tab 04/27/19 10/26/19 Unknown Rx Xl] - History of Present Illness -Gen Adult Nature of Presenting Problems: pt is a 59 yr old male presenting with 1 month complaint of bilateral lower leg/feet edema, discoloration and pain, pt reports worsening. pt also reports increased shortness of breath. pt denies any chest pain. pt admits hx of CHF Location of Pain/Injury: reports: lower extremity, feet Pain Radiation: reports: no radiation Quality of Pain: reports: burning (burning/prickly pain to bilateral feet/lower legs) Severity: reports: severe Onset/Duration: reports: other (1 month) Context/Activities at Onset: reports: none Modifying Factors: improves with: nothing Associated Symptoms: reports: cough, fatigue, nausea, shortness of breath, sensory/motor loss, trouble walking. denies: chest pain, diaphoresis, fever/chills, genitourinary problems, muscle aches, sinus congestion/drainage Similar Symptoms Previously?: No Recently seen or treated by another doctor?: No Review of Systems - Adult - REVIEW OF SYSTEMS - ADULT Constitutional: reports: fatique. denies: fever Eyes: reports: no symptoms reported Ears, Nose, Mouth & Throat: reports: no symptoms reported Cardiovascular: reports: edema. denies: chest pain, palpitations, syncope Respiratory: reports: cough, dyspnea on exertion, shortness of breath. denies: excessive sputum production, wheezing Gastrointestinal: reports: nausea. denies: abdominal pain, vomiting Genitourinary: reports: no symptoms reported Musculoskeletal: reports: no symptoms reported Integumentary: reports: other (edema, discoloration and multiple sores to bilateral feet/lower legs) Neurological: denies: dizziness/vertigo, headache/migraines, numbness Psychiatric: reports: no symptoms reported Endocrine: reports: no symptoms reported Hematologic/Lymphatic: reports: no symptoms reported Allergic/Immunologic: reports: no symptoms reported All Other Systems: Reviewed and Negative Past History - Adult - PAST MEDICAL HISTORY-ADULT Review of Records: reports: Old Records Reviewed, Nursing Assessment Review, Medications Reviewed, Social history reviewed & non-contributory. Major Childhood Illnesses: reports: denies history Cardiovascular: reports: CHF Respiratory: reports: COPD Gastrointestinal: reports: denies history Obstetrical/Gynecological: reports: denies history Genitourinary: reports: denies history Musculoskeletal: reports: denies history Neurological: reports: denies history Psychiatric: reports: anxiety Endocrine/Immune: reports: denies history Other Conditions: reports: denies history - PRIOR SURGERIES/PROCEDURES Surgical/Procedure History: reports: none - IMMUNIZATION STATUS Childhood Immunizations: See Nurse Assessment Flu Vaccine: See Nurse Assessment - FAMILY HISTORY Family History: reviewed, not pertinent - SOCIAL HISTORY Smoking: cigarettes Provider spent 3-5 mins advising pt. on dangers of tobacco.: Discussed manners to quit use, and f/u contacts for add'l counseling. Substance Use: alcohol Living Situation: family Physical Exam-General - PHYSICAL EXAM-ADULT Initial Vital Signs Reviewed: Yes - CONSTITUTIONAL General Appearance: alert, no apparent distress - EYES Eyes: PERRL/EOMI - HEAD, EARS, NOSE, MOUTH & THROAT HENMT: normocephalic/atraumatic, moist mucous membranes, normal ENT inspection - NECK Neck: non-tender, full range of motion, supple, normal inspection - RESPIRATORY Respiratory: chest non-tender, lungs clear, normal breath sounds, no respiratory distress, no accessory muscle use - CARDIOVASCULAR Cardiovascular: normal peripheral pulses, regular rate, rhythm - GASTROINTESTINAL (ABDOMEN) Abdominal Exam: non tender, soft - LYMPHATIC Lymphatic: no adenopathy - MUSCULOSKELETAL Back Exam: normal inspection Extremity: pelvis stable, pulse deficit, pedal edema (edema to mid calf), slow capillary refill, tenderness (bilateral feet/lower legs) Peripheral Pulses: dorsalis-pedis (R): 1+, dorsalis-pedis (L): 1+ - SKIN Integumentary: other (purple discoloration BLE/feet, edema and multiple crusted lesions BLE/feet) - NEUROLOGIC Neurologic: grossly normal - PSYCHIATRIC Psych/Mental Status: normal mood/affect Progress - PLAN OF CARE/RESULTS Progress/Plan/Lab Results: Vital Signs - 8 hr 10/26/19 21:10 Temperature 97.5 F L Pulse Rate 91 H Respiratory Rate 20 Blood Pressure 108/71 O2 Sat by Pulse Oximetry 96 Result Diagrams: 10/26/19 23:30 10/26/19 23:30 - REASSESSMENT Reassessment #1 Time Reassessed: 00:30 Status: improving Reassessment Comment: will admit. - CONSULTS/PCP/HOSPITALIST Notification #1 *Consult/PCP/Hospitalist*: d/w Dr Buitrago Time Discussed: 00:44 Consult Disposition: Admit Departure - Departure Date of Disposition Decision: 10/27/19 Time of Disposition Decision: 00:46 DIAGNOSIS: Renal insufficiency, Acute on chronic heart failure, Pedal edema, Leg pain, bilateral, Transaminitis Disposition: ADMITTED INPATIENT 09 Certified Medical Emergency: Emergent Condition: Stable Referrals and Follow-Ups: None,PCP [Primary Care Provider] - - Critical Care Note This patient required my direct & personal management of CC.: No Attestation - Physician/ GAIL Attestation Patient care was provided by Advanced Practice Provider:: No The physician spent face to face time with patient:: Yes Advanced Practice Provider documentation review:: Supervising physician onsite and consulted in the evaluation and care of this patient. The physician did have a face to face encounter with the patient. This chart was documented by the indicated scribe, (Thais Mckeon Scribe) and accurately reflects the services I performed and decisions made by me, Monroe Fofana MD, as attested by the provider's signature.
[2019-10-27 06:20] LABS: URINE SOURCE CLEAN CATCH
[2019-10-27 06:23] LABS: BILIRUBIN URINE NEGATIVE (NEGATIVE); BLOOD URINE NEGATIVE (NEGATIVE); COLOR YELLOW; GLUCOSE URINE NEGATIVE (NEGATIVE); KETONE URINE NEGATIVE (NEGATIVE); LEUKOCYTES URINE NEGATIVE (NEGATIVE); NITRITE URINE NEGATIVE (NEGATIVE); PROTEIN URINE NEGATIVE (NEGATIVE); SP GRAVITY URINE 1.009; TURBIDITY URINE CLEAR (CLEAR); UR EPITHELIAL CELLS <10 /HPF (<10); URINE BACTERIA NEGATIVE /HPF; URINE RBC <10 /HPF (<10); URINE WBC <10 /HPF (<10); UROBILINOGEN URINE NORMAL (NORMAL)
[2019-10-27 06:40] LABS: UR AMPHETAMINES QUAL PRESUMPTIVE POSITIVE (NONE DETECT); UR BARBITUATES QUAL NONE DETECTED (NONE DETECT); UR BENZODIAZEPIN QUAL NONE DETECTED (NONE DETECT); UR CANNABINOIDS QUAL NONE DETECTED (NONE DETECT); UR COCAINE QUAL NONE DETECTED (NONE DETECT); UR METHADONE QUAL NONE DETECTED (NONE DETECT); UR METHAMPHETAMINE QUAL PRESUMPTIVE POSITIVE (NONE DETECT); UR OPIATES QUAL NONE DETECTED (NONE DETECT); UR OXYCODONE QUAL NONE DETECTED (NONE DETECT); UR PCP QUAL NONE DETECTED (NONE DETECT); UR PROPOXYPHENE QUAL NONE DETECTED (NONE DETECT); UR TCA QUAL NONE DETECTED (NONE DETECT)
[2019-10-27 07:09] LABS: ALBUMIN 3.7 g/dL (3.5-5.0); CALCIUM 8.8 mg/dL (8.8-10.2); CREATININE 2.4 mg/dL (0.7-1.2); POTASSIUM 4.5 mmol/L (3.5-5.1); TOTAL BILIRUBIN 3.2 mg/dL (0.20-1.00); TOTAL PROTEIN 7.5 g/dL (6.3-8.3)
[2019-10-27] MEDS ORDERED: TYLENOL PO PRN (07:59)
[2019-10-27] MEDS ORDERED: ZOFRAN IV PRN (07:59)
--- NOTE | 2019-10-27 08:03 | Diag Imaging Result Doc PS360 ---
EXAM: CHEST-1 VIEW - 10/26/2019 HISTORY: SOB TECHNIQUE: One view chest COMPARISON: 04/27/2019 FINDINGS: Heart size appears the upper range of normal. There is mild tortuosity rest aorta. There is mild subsegmental atelectasis at the lateral left base. The lungs otherwise appear clear. There is a small right pleural effusion. There is no evidence of pneumothorax. IMPRESSION: Mild subsegmental atelectasis at lateral left base. Small right pleural effusion. Electronically signed by Jose Gómez 10/27/2019 8:01 AM
--- NOTE | 2019-10-27 08:46 | EKG Report ---
Test Performed on : 10/27/2019 08:37:38 AM Test Reason : follow up Blood Pressure : / mmHG Vent. Rate : 095 BPM Atrial Rate : 095 BPM P-R Int : 156 ms QRS Dur : 090 ms QT Int : 382 ms P-R-T Axes : 083 002 181 degrees QTc Int : 480 ms Normal sinus rhythm. Possible Left atrial enlargement Nonspecific T wave abnormality Prolonged QT Abnormal ECG When compared with ECG of 22-APR-2019 23:49, No significant change was found Confirmed by Kevin Duncan MD ([id number]) on 11/09/2019 1:52:24 AM
[2019-10-27] MEDS ORDERED: LASIX IV SCH (09:00)
[2019-10-27] MEDS: APRESOLINE PO SCH ×3 (09:02→20:04)
[2019-10-27] MEDS: LASIX IV SCH ×2 (09:02→20:04)
[2019-10-27] MEDS: TOPROL XL PO SCH (09:02)
[2019-10-27] MEDS: ALDACTONE PO SCH (09:02)
--- NOTE | 2019-10-27 10:30 | HISTORY AND PHYSICAL ---
PRIMARY CARE PROVIDER: None. CHIEF COMPLAINT: Painful feet. HISTORY OF PRESENT ILLNESS: Mr. Del Angel is a 59-year-old male who carries a past medical history of acute on chronic systolic congestive heart failure with an EF of 25% in the setting of global hypokinesis, severe dilated cardiomyopathy that is probably nonischemic, tobacco use and abuse, continued recreational drug abuse, chronic kidney disease from cardiorenal syndrome, COPD, alcohol use, hypertension, medical noncompliance, who reported to the ED with a 2- month history of bilateral lower extremity edema, redness, and painful swelling. He does admit to drinking 1 liter of alcohol last week to help with the pain of his feet. He also reports to intermittently shooting up methamphetamines and amphetamine to help with the pain. He does get his medications filled. However, he reports that he may miss a day or 2 to because he will forget, but as soon as he remembers, he will start taking them again. He does not feel that he is any more short of breath than his usual. He does feel like his urine output has decreased some. He feels like his urine output has become darker, and he feels like his Lasix is not as effective as it was when he first started taking it. He reports no injuries to his lower extremities. Again, no shortness of breath more than his usual. No chest pain. No palpitations. No fever. No chills. No abdominal pain. No nausea, vomiting, diarrhea. No dysuria. He does report that his scrotal area, as well as his abdomen, will intermittently swell and then will go back down. However, he reports that it is not swollen at this time. However, he does have some anascara in his flank areas. Workup in the ED shows worsening renal function with a BUN of 56 and a creatinine of 2.5, transaminitis, elevation in his troponins probably secondary to his acute kidney injury, and elevated proBNP. His chest x-ray is essentially clear. He does not sound like he has fluid on his lungs. He is positive for amphetamines and methamphetamines. He was given a dose of IV Lasix in the ED with not much change in his BUN and creatinine overnight. We will continue with IV Lasix for now. We will continue with his home metoprolol, Aldactone, and hold his losartan and put him on Apresoline and recheck his renal function in the a.m. We will go ahead and check and complete abdominal ultrasound to assess his liver, as well as his kidneys, and check a hepatitis profile and a uric acid level. PAST MEDICAL HISTORY: As per HPI. PAST SURGICAL HISTORY: None. ALLERGIES: To penicillin and sulfa. CURRENT MEDICATIONS: 1. Lasix 40 mg p.o. daily. 2. Losartan 50 mg p.o. daily. 3. Metoprolol 12.5 mg p.o. daily. 4. Spironolactone 25 mg p.o. daily. REVIEW OF SYSTEMS: Twelve-point review of systems completely negative except for those mentioned in HPI. PHYSICAL EXAMINATION: VITAL SIGNS: Temperature is 97.8 degrees, heart rate 74, respirations 20, blood pressure 137/76, and O2 is 97% on room air. GENERAL: Mr. Del Angel is a 59-year-old male who is sitting up in the bed, eating breakfast, in no acute distress. HEENT: Atraumatic, normocephalic. PERRL. NECK: Supple. Trachea midline. CARDIOVASCULAR: S1 and S2 appreciated. No murmurs, gallops, or rubs noted. RESPIRATORY: Lung sounds clear. Did not appreciate any rales, rhonchi, or wheezes. GASTROINTESTINAL: Soft, nontender, and anascara noted to his flank areas. MUSCULOSKELETAL: Bilateral lower extremities, pitting edema. There is erythema and warmth noted up to the knee area, as well as many old crusted over lesions. There are no open wounds. No weeping. Bilateral pedal pulses are bounding. NEUROLOGIC: No focal deficits noted. LABORATORY DATA: White count 8, hemoglobin and hematocrit of 13 and 43, platelet count 194,000. Sodium 136, potassium 4.8, BUN 56, creatinine 2.5, blood glucose is 115, T- bilirubin 3.4, AST 153, ALT 74, alkaline phosphatase 138, CK-MB 1493. Troponin 0.074, second troponin 0.089. ProBNP was 7956, this a.m. 7116. Urinalysis is negative. Toxicology screen was positive for amphetamines and methamphetamine. Pending uric acid. DIAGNOSTICS: Chest x-ray showed mild segmental atelectasis at the left lateral base, small right pleural effusion. Pending complete abdominal ultrasound to review his liver and bilateral kidneys. ASSESSMENT AND PLAN: 1. Acute on chronic systolic heart failure associated with bilateral lower extremity edema and mild anasarca. The patient is somewhat noncompliant with home medications. He has been getting his prescriptions filled; however, he does admit that he does not take them regularly. He may skip a day or 2 out of the week and continue to drink alcohol on occasion, but not as much as he used to and will still do intravenous drugs. We are going to continue with intravenous Lasix cautiously given his acute renal failure and continue his metoprolol. We have stopped his losartan for now given his kidney function, added in hydralazine. If his kidney function continues to worsen, we may have to transfer him to [facility] for assistance with Cardiology, as well as Nephrology. 2. Bilateral lower extremity edema with associated erythema and warmth. We are checking a uric acid level. There is pitting edema. It does not appear to be cellulitis. Unsure if gout. There are no active open sores or oozing. There are several crusted areas. We will see how he does with intravenous Lasix. 3. Acute kidney injury on chronic kidney disease. We are going to check a renal ultrasound. We are giving him intravenous Lasix cautiously. We are going to watch his kidney function closely. We know we are walking a tightrope with his fluid overload and his kidney function. We have stopped his losartan for now. If his kidney function worsens, we will transfer to [facility] for assistance with Nephrology. 4. Hypertension. Continue hydralazine, metoprolol. 5. Severe ischemic cardiomyopathy. 6. Medical noncompliance. The patient is very forthcoming about not remembering to take medications on a daily basis. 7. Polysubstance abuse with methamphetamines and amphetamines, intravenous drug abuse. The patient is very forthcoming about his use and abuse. 8. Ongoing tobacco use and abuse. 9. Transaminitis, possibly worsening of his cardiorenal syndrome or multifactorial related to his intravenous drug use and alcohol use, worsening heart failure. 10. Alcohol use. He reports that he has slowed down his alcohol use, but he did last week drink 1 liter of alcohol to help with his pain in his bilateral extremities. We will check his right upper quadrant ultrasound, as well as send off a hepatitis panel. 11. Elevated troponins. He adamantly denies any type of chest pain or palpitations. I do believe it is secondary to his worsening renal function. 12. Chronic obstructive pulmonary disease without exacerbation. 13. Further recommendations to follow physician evaluation, laboratory and diagnostic data. Dictated by BNEEDICT John for Bola Buitrago MD cc: Bola Buitrago MD MTDD
--- NOTE | 2019-10-27 11:47 | HISTORY AND PHYSICAL ---
ADDENDUM: Patient seen and examined by myself. Full note dictated and discussed with nurse practitioner. Patient presented to the hospital with pain in his lower extremities of undetermined origin. Denies any recent injuries. He has had increased swelling and pulmonary edema from congestive heart failure. We are going to admit in the hospital, place him on Lasix. Check x-ray of his foot as well as uric acid, and will follow. cc: Bola Buitrago MD
--- NOTE | 2019-10-27 14:38 | Diag Imaging Result Doc PS360 ---
EXAM: US ABDOMEN-COMPLETE - 10/27/2019 HISTORY: abdominal pain TECHNIQUE: Ultrasound abdomen COMPARISON: 09/07/2018 ultrasound gallbladder FINDINGS: There is no discrete liver lesion identified. Flow direction in the portal vein is ambiguous. The spleen is borderline enlarged, measuring 12.4 x 5.4 x 13 cm. There is a small amount of ascites. The gallbladder is contracted which limits evaluation. There are no discrete gallstones identified. The technologist reports negative sonographic Dexter's sign. The common bile duct is normal caliber at 4 mm. The pancreas is largely obscured by bowel gas artifacts. There are no abnormalities of the bilateral kidneys identified. Abdominal aorta and IVC appear normal caliber. IMPRESSION: Borderline enlarged spleen. No discrete liver lesion. Small amount of ascites. Contracted gallbladder. No discrete gallstones. Normal caliber common bile duct at 4 mm. The pancreas is largely obscured by bowel gas artifacts. Electronically signed by Jose Gómez 10/27/2019 2:36 PM
--- NOTE | 2019-10-27 23:31 | EKG Report ---
Test Performed on : 10/27/2019 10:09:15 PM Test Reason : [employer] of [employer] Blood Pressure : / mmHG Vent. Rate : 088 BPM Atrial Rate : 088 BPM P-R Int : 146 ms QRS Dur : 094 ms QT Int : 386 ms P-R-T Axes : 074 033 213 degrees QTc Int : 467 ms Normal sinus rhythm. Possible Left atrial enlargement T wave abnormality, consider inferolateral ischemia Prolonged QT Abnormal ECG When compared with ECG of 27-OCT-2019 08:37, (Unconfirmed) No significant change was found Confirmed by Kevin Duncan MD ([id number]) on 11/09/2019 1:52:18 AM
[2019-10-28 06:54] LABS: ALBUMIN 3.2 g/dL (3.5-5.0); CALCIUM 8.2 mg/dL (8.8-10.2); CREATININE 1.7 mg/dL (0.7-1.2); POTASSIUM 4.2 mmol/L (3.5-5.1); TOTAL BILIRUBIN 1.7 mg/dL (0.20-1.00)
[2019-10-28 07:07] LABS: HEMATOCRIT 39.6 % (42.0-52.0); HEMOGLOBIN 12.7 g/dL (14.0-18.0); MCH 30.3 PG (27-31); MCHC 32.1 g/dL (33-37); MCV 94.5 FL (81-99); RBC 4.19 XMIL (4.7-6.1); RDW 15.1 % (11.5-14.5); WBC 5.78 X1000 (4.8-10.8)
--- NOTE | 2019-10-28 07:10 | Diag Imaging Result Doc PS360 ---
CHEST-PORTABLE - 10/28/2019 INDICATION: dyspnea COMPARISON: 10/26/2019 FINDINGS: The lungs are normally expanded and clear. Heart size and mediastinal contours are normal. No pneumothorax or pleural effusion. IMPRESSION: Negative exam. Electronically signed by Syed Ho 10/28/2019 7:07 AM
[2019-10-28 08:30] VITALS: BP 115/68
[2019-10-28] MEDS ORDERED: COLCRYS PO SCH (09:00)
[2019-10-28] MEDS: ALDACTONE PO SCH (09:08)
[2019-10-28] MEDS: TOPROL XL PO SCH (09:08)
[2019-10-28] MEDS: APRESOLINE PO SCH (09:08)
[2019-10-28] MEDS: LASIX IV SCH ×2 (09:09→09:10)
[2019-10-28 13:20] LABS: HEPATITIS PROFILE ACUTE SEE COMMENTS
--- NOTE | 2019-10-28 14:44 | DISCHARGE SUMMARY ---
ADMISSION DATE: 10/27/2019 DISCHARGE DATE: 10/28/2019 PRIMARY CARE PROVIDER: None. STUDIES AND PROCEDURES: Chest x-ray, mild subsegmental atelectasis at the lateral left base, small right pleural effusion. Abdominal ultrasound, borderline enlarged spleen. No discrete liver lesions. Small amount of ascites, contracted gallbladder. No discrete gallstones. Normal caliber common bile duct at 4 mm. The pancreas is largely obscured by bowel gas artifact. Followup chest x-ray showed the lungs are normally expanded and clear. No pneumothorax or pleural effusion. DISCHARGE DIAGNOSES: 1. Chronic systolic congestive heart failure with bilateral lower extremity edema and mild anscara in the flanks. The patient is somewhat compliant with medications. He does get his prescriptions filled regularly. However, he admits he will go sometimes a day or two without taking them. He also admits to drinking alcohol on occasion as well as IV drug use with amphetamines and methamphetamine. We did discuss the problem with him of alcohol and illicit drug abstinence, as well as taking his medications on a daily basis. 2. Bilateral lower extremity edema with gout. His uric acid level was elevated. He has been started on Colcrys. These were reddened and painful for which the patient came in. He does take Lasix, which is probably part of the culprit as the patient does need this for his chronic systolic heart failure. 3. Acute kidney injury on chronic kidney disease, acute kidney injury. He is about back to his baseline now. 4. Hypertension. Continue home regimen. 5. Severe ischemic cardiomyopathy, aware. 6. Medical noncompliance. Again, patient has been educated. 7. Polysubstance abuse with methamphetamine and amphetamine IV drug abuse. Education about abstinence has been given. 8. Ongoing tobacco use and abuse. Daily cessation was discussed. 9. Transaminitis is actually improved. I did send off a hepatitis panel. He does have a history of IV drug use. 10. Alcohol use. Again, we discussed abstinence. 11. Elevated troponins in the setting of his worsening renal function. He adamantly denies any chest pain. 12. Chronic obstructive pulmonary disease without exacerbation. HOSPITAL COURSE: Briefly, Mr. Del Angel is a pleasant, forthcoming 59-year-old male with a past medical history of acute on chronic systolic heart failure with an EF of 25% in the setting of global hypokinesis with severe dilated cardiomyopathy, nonischemic, tobacco use and abuse, recreational drug abuse, chronic kidney disease from cardiorenal syndrome, COPD, alcohol use, hypertension, medical noncompliance, who came to the ED with a 2 month history of bilateral lower extremity edema, redness and painful swelling, and admitted to drinking alcohol as well as shooting up methamphetamines and amphetamines to help with the pain as well as missing doses of his prescribed home medications and continued tobacco use and abuse. We did go over the perils of any illicit drug use abstinence, alcohol abstinence, as well as tobacco cessation, as well as taking all his prescribed medications on time. His lower extremities did not appear to be cellulitis. We did check a uric acid level. It was elevated. He does have bilateral gout for which he has been started on Colcrys. Unfortunately, he does have to take Lasix given his chronic systolic heart failure and it will be hard for him to maintain a balance of his Lasix and being adequately hydrated to keep this issue from recurring again. It will be another tight rope that we have to work around. We also had the director case discuss the [facility] information with the patient as he states he does not have any insurance. We felt like he would need close follow-up given all his medical issues and maybe some need for medication changes from [id number] to help with any flares or exacerbations. He states that he does understand. He has had a stable hospital course and is appropriate for discharge back home today. VITAL SIGNS: Temperature is 98.6 degrees, heart rate 94, respirations 18, blood pressure 115/60, O2 is 99% on room air. DISCHARGE DIET: Healthy heart. DISCHARGE MEDICATIONS: 1. Colcrys 0.6 mg p.o. b.i.d. 2. Cozaar 50 mg p.o. daily. 3. Lasix 40 mg p.o. daily. 4. Metoprolol-XL 12.5 mg p.o. daily. 5. Spironolactone 25 mg tablets p.o. daily. FOLLOWUP: Mr. Del Angel is being discharged back home with self care. He is to take all medications as prescribed. He has been given [facility] for [facility]. We have encouraged him to set up and make an appointment and to take all medications as prescribed. Illicit drug use abstinence, alcohol abstinence, and tobacco use cessation. Dictated by BENEDICT John for Bola Buitrago MD cc: Bola Buitrago MD [facility]
--- NOTE | 2019-10-28 18:54 | DISCHARGE SUMMARY ---
ADMISSION DATE: 10/27/2019 DISCHARGE DATE: 10/28/2019 On discharge, patient is awake, alert. He is in no distress. His uric acid was elevated at 9.6. Discussed with him that he does have gout. Discussed diet control as well as medication. We will start with colchicine and follow up outpatient with his primary care after the exacerbation is over and consider allopurinol. Further orders as needed. Please see full dictation. cc: Bola Buitrago MD
[2019-10-31 11:47] LABS: HCV BY PCR SEE COMMENTS
== END 2019-10-28 12:55 | disposition home or self-care (01) ==
LOC: P.ED 21:07 → INTOOBSV 10-27 02:45 → P.MEDSURG 10-27 02:45 → OBSVTOIN 10-27 02:45
PROVIDERS: ATTEND Family Medicine

== ENCOUNTER 2020-01-01 03:45 | Inpatient (IN) ==
[2020-01-01] MEDS ORDERED: LASIX IV ONE (04:06)
--- NOTE | 2020-01-01 04:35 | PROVIDER DOCUMENTATION ---
HPI-Respiratory General - General Chief Complaint: Male Stated Complaint: ENLARGED SCROTUM Time Seen by Provider: 01/01/20 03:49 Source: patient Allergies/Adverse Reactions: Patient Allergies Allergy/AdvReac Type Severity Reaction Status Date / Time Penicillins Allergy Severe ANAPHYLAXIS Verified 04/22/19 23:37 Sulfa (Sulfonamide AdvReac Unknown Verified 04/22/19 23:37 Antibiotics) Home Medications: Home Medication List Medication Instructions Recorded Confirmed Last Taken Type Furosemide [Lasix] 40 mg PO DAILY #120 tab 04/27/19 10/26/19 Unknown Rx Losartan [Cozaar] 50 mg PO DAILY #240 tab 04/27/19 10/26/19 Unknown Rx Metoprolol Succinate E.r. [Toprol 12.5 mg PO DAILY #120 tab 04/27/19 10/26/19 Unknown Rx Xl] Colchicine [Colcrys] 0.6 mg PO BID #60 tab 10/28/19 Unknown Rx - History of Present Illness-Resp Nature of Presenting Problem: 59 y/o WM c/o SOB and swelling to his scrotum for the past 4 days. Pt states that he has history of CHF and has missed several doses of his medications that led up to his symptoms today. Pt also admits that he hasnt followed up with anyone since being in the hospital several months ago for the same condition. Quality of Pain: reports: none Severity in ED: reports: moderate Onset/Duration: reports: 4 days ago Timing: reports: still present Context: reports: other (missed several doses of medications) Cough Quality/Degree: reports: no cough Episode Frequency: rare episodes Current Respiratory Medication Therapy: Initiated see nurses note Associated Symptoms: reports: shortness of breath, other (edema and scrotal swelling) Similar Symptoms Previously?: Yes Recently seen or treated by another doctor?: No Review of Systems - Adult - REVIEW OF SYSTEMS - ADULT Constitutional: reports: no symptoms reported, see HPI Eyes: reports: no symptoms reported, see HPI Ears, Nose, Mouth & Throat: reports: no symptoms reported, see HPI Cardiovascular: reports: see HPI, edema Respiratory: reports: see HPI, shortness of breath Gastrointestinal: reports: no symptoms reported, see HPI Genitourinary: reports: see HPI, other (scrotal edema) Musculoskeletal: reports: no symptoms reported, see HPI Integumentary: reports: no symptoms reported, see HPI Neurological: reports: no symptoms reported, see HPI Psychiatric: reports: no symptoms reported, see HPI Endocrine: reports: no symptoms reported, see HPI Hematologic/Lymphatic: reports: no symptoms reported, see HPI Allergic/Immunologic: reports: no symptoms reported, see HPI All Other Systems: Reviewed and Negative Past History - Adult - PAST MEDICAL HISTORY-ADULT Review of Records: reports: Nursing Assessment Review, Medications Reviewed, Social history reviewed & non-contributory. Major Childhood Illnesses: reports: denies history Cardiovascular: reports: CHF Respiratory: reports: COPD Gastrointestinal: reports: denies history Musculoskeletal: reports: denies history Neurological: reports: denies history Psychiatric: reports: anxiety Endocrine/Immune: reports: denies history - PRIOR SURGERIES/PROCEDURES Surgical/Procedure History: reports: none - IMMUNIZATION STATUS Childhood Immunizations: See Nurse Assessment Flu Vaccine: See Nurse Assessment - FAMILY HISTORY Family History: reviewed, not pertinent Physical Exam-General - PHYSICAL EXAM-ADULT Initial Vital Signs Reviewed: Yes - CONSTITUTIONAL General Appearance: appears well, alert, no apparent distress - EYES Eyes: PERRL/EOMI - HEAD, EARS, NOSE, MOUTH & THROAT HENMT: normocephalic/atraumatic, moist mucous membranes - NECK Neck: non-tender, full range of motion, supple, normal inspection - RESPIRATORY Respiratory: chest non-tender, lungs clear, normal breath sounds, no pleuratic chest pain, no respiratory distress, no accessory muscle use - CARDIOVASCULAR Cardiovascular: normal peripheral pulses, regular rate, rhythm, no edema, no gallop, no JVD, no murmur - GASTROINTESTINAL (ABDOMEN) Abdominal Exam: normal bowel sounds, soft, no organomegaly, no pulsatile mass, tenderness (suprapubic tenderness with palpation) - GENITOURINARY Male Genitalia: scrotal swelling (marked with cellulitis) - MUSCULOSKELETAL Back Exam: normal inspection, no CVA tenderness, no vertebral tenderness Extremity: normal range of motion, normal gait, normal capillary refill, swelling, tenderness - SKIN Integumentary: normal turgor, erythema (to RLE) - NEUROLOGIC Neurologic: lens edger II-XII nml as tested, grossly normal - PSYCHIATRIC Psych/Mental Status: normal mood/affect, normal thought content, normal thought process, oriented x 3 - HEART Score HEART Score: History: Slightly Suspicious HEART Score: ECG: Non-Specific Repolarization Disturbance/LBBB/PM HEART Score: Age: 45-65 Years HEART Score: Risk Factors for Atherosclerotic Disease: 1 or 2 Risk Factors HEART Score: Troponin: < or = Normal Limit Total HEART Score:: 3 Progress - PLAN OF CARE/RESULTS Progress/Plan/Lab Results: Vital Signs - 8 hr 01/01/20 03:48 Temperature 98.0 F Pulse Rate 107 H Respiratory Rate 19 Blood Pressure 123/72 O2 Sat by Pulse Oximetry 97 Laboratory Results - last 24 hr 01/01/20 01/01/20 01/01/20 04:23 04:23 04:23 WBC RBC Hgb Hct MCV MCH MCHC RDW Std Deviation Plt Count MPV Immature Gran % (Auto) Neut % (Auto) Lymph % (Auto) [place] % (Auto) Eos % (Auto) Baso % (Auto) Immature Gran # (Auto) Neut # (Auto) Lymph # (Auto) [place] # (Auto) Eos # (Auto) Baso # (Auto) PT INR PTT (Actin FS) Sodium 140 Potassium 4.9 Chloride 99 Carbon Dioxide 32 Anion Gap 9 BUN 25 H Creatinine 1.5 H Estimated GFR/1.73 m2 48 BUN/Creatinine Ratio 17 Glucose 122 H Calculated Osmolality 285 Calcium 8.6 L Total Bilirubin 2.00 H AST 75 H ALT 38 Alkaline Phosphatase 111 Troponin T High Sens 25 H Kyr-Y-Ssvfvodjnye Pept 5956 H Total Protein 7.6 Albumin 3.6 Globulin 4.0 Albumin/Globulin Ratio 0.9 Urine Source Urine Color Urine Turbidity Urine pH Ur Specific [place] Urine Protein Ur Glucose (Stick) Ur Ketones (Stick) Urine Blood Urine Nitrite Urine Bilirubin Urobilinogen Dipstick Urine Leukocytes Urine WBC (Auto) Urine RBC (Auto) U Epithel Cells (Auto) Urine Bacteria (Auto) 01/01/20 01/01/20 01/01/20 04:23 04:23 04:58 WBC 5.20 RBC 4.06 L Hgb 12.7 L Hct 40.8 L MCV 100.5 H MCH 31.3 H MCHC 31.1 L RDW Std Deviation 15.4 H Plt Count 124 L MPV 11.1 H Immature Gran % (Auto) 0.0 Neut % (Auto) 61.1 Lymph % (Auto) 18.1 L [place] % (Auto) 16.3 H Eos % (Auto) 3.5 Baso % (Auto) 1.0 H Immature Gran # (Auto) 0.00 Neut # (Auto) 3.18 Lymph # (Auto) 0.94 L [place] # (Auto) 0.85 H Eos # (Auto) 0.18 Baso # (Auto) 0.05 PT 16.0 INR 1.26 PTT (Actin FS) 31.5 Sodium Potassium Chloride Carbon Dioxide Anion Gap BUN Creatinine Estimated GFR/1.73 m2 BUN/Creatinine Ratio Glucose Calculated Osmolality Calcium Total Bilirubin AST ALT Alkaline Phosphatase Troponin T High Sens Uef-G-Bghhxykecyp Pept Total Protein Albumin Globulin Albumin/Globulin Ratio Urine Source CLEAN CATCH Urine Color YELLOW Urine Turbidity CLEAR Urine pH 7.0 Ur Specific [place] 1.016 Urine Protein TRACE A Ur Glucose (Stick) NEGATIVE Ur Ketones (Stick) NEGATIVE Urine Blood NEGATIVE Urine Nitrite NEGATIVE Urine Bilirubin NEGATIVE Urobilinogen Dipstick 4 A Urine Leukocytes NEGATIVE Urine WBC (Auto) <10 Urine RBC (Auto) <10 U Epithel Cells (Auto) <10 Urine Bacteria (Auto) NEGATIVE Orders Category Date Time Status CHEST-1 VIEW [RAD] Stat Exams 01/01/20 04:06 Taken CBC WITH ELECTRONIC DIFF [HEME] Stat Lab 01/01/20 04:23 Completed COMPREHENSIVE METABOLIC PANEL [CHEM] Stat Lab 01/01/20 04:23 Completed PRO B-NATRIURETIC PEPTIDE Stat Lab 01/01/20 04:23 Completed PROTIME WITH INR [COAG] Stat Lab 01/01/20 04:23 Completed PTT [COAG] Stat Lab 01/01/20 04:23 Completed TROPONIN T HIGH SENSITIVITY Stat Lab 01/01/20 04:23 Completed URINALYSIS W/POSS RFLX CULT [URINALYSIS] Stat Lab 01/01/20 04:58 Completed Furosemide [Lasix] Med 01/01/20 04:06 Discontinued 40 mg IV NOW ONE Levaquin 500 mg/D5w IV Now Med 01/01/20 05:38 Ordered Levofloxacin 500 mg/D5w [Levaquin 500 mg/D5w] 500 mg in 100 ml IV NOW EKG [EKG] Stat Ther 01/01/20 04:06 Draft Result Diagrams: 01/01/20 04:23 01/01/20 04:23 - CONSULTS/PCP/HOSPITALIST Notification #1 *Consult/PCP/Hospitalist*: Dr Tan Time Discussed: 05:31 Consult Disposition: Will see in ED, Admit Departure - Departure Date of Disposition Decision: 01/01/20 Time of Disposition Decision: 05:32 DIAGNOSIS: Renal insufficiency, Cellulitis of scrotum, Acute on chronic heart failure, Leg pain, bilateral, Pedal edema Disposition: ADMITTED INPATIENT 09 Certified Medical Emergency: Emergent Condition: Fair Referrals and Follow-Ups: None,PCP [Primary Care Provider] - - Critical Care Note This patient required my direct & personal management of CC.: No Attestation - Physician/ GAIL Attestation Patient care was provided by Advanced Practice Provider:: No The physician spent face to face time with patient:: Yes Advanced Practice Provider documentation review:: Supervising physician onsite and consulted in the evaluation and care of this patient. The physician did have a face to face encounter with the patient.
[2020-01-01 04:39] LABS: INR 1.26
[2020-01-01 04:40] LABS: PTT 31.5 Seconds (22.3-41.8)
[2020-01-01 04:41] LABS: BASO# 0.05 X1000 (0.0-0.2); EOS# 0.18 X1000 (0.0-0.7); EOS% 3.5 % (0.0-10.0); HEMATOCRIT 40.8 % (42.0-52.0); HEMOGLOBIN 12.7 g/dL (14.0-18.0); LYMPH# 0.94 X1000 (1.2-3.4); LYMPH% 18.1 % (20.5-51.1); MCH 31.3 PG (27-31); MCHC 31.1 g/dL (33-37); MCV 100.5 FL (81-99); MONO# 0.85 X1000 (0.11-0.59); MONO% 16.3 % (1.7-9.3); MPV 11.1 FL (7.4-10.4); NEUT# 3.18 X1000 (1.4-6.5); NEUT% 61.1 % (42.2-75.2); PLT 124 X1000 (130-400); RBC 4.06 XMIL (4.7-6.1); RDW 15.4 % (11.5-14.5)
[2020-01-01 04:45] LABS: ALB/GLOB RATIO 0.9; ALBUMIN 3.6 g/dL (3.5-5.0); CALCIUM 8.6 mg/dL (8.8-10.2); CREATININE 1.5 mg/dL (0.7-1.2); POTASSIUM 4.9 mmol/L (3.5-5.1); TOTAL PROTEIN 7.6 g/dL (6.3-8.3)
--- NOTE | 2020-01-01 04:52 | EKG Report ---
Test Performed on : 01/01/2020 04:45:17 AM Test Reason : sob Blood Pressure : / mmHG Vent. Rate : 112 BPM Atrial Rate : 112 BPM P-R Int : 140 ms QRS Dur : 088 ms QT Int : 358 ms P-R-T Axes : 078 -12 153 degrees QTc Int : 488 ms Sinus tachycardia. Possible Left atrial enlargement Low voltage QRS Septal infarct , age undetermined Abnormal ECG When compared with ECG of 27-OCT-2019 22:09, Nonspecific T wave abnormality, improved in Inferior leads Unconfirmed Result
[2020-01-01 05:14] LABS: URINE SOURCE CLEAN CATCH
[2020-01-01 05:20] LABS: BILIRUBIN URINE NEGATIVE (NEGATIVE); BLOOD URINE NEGATIVE (NEGATIVE); COLOR YELLOW; GLUCOSE URINE NEGATIVE (NEGATIVE); KETONE URINE NEGATIVE (NEGATIVE); LEUKOCYTES URINE NEGATIVE (NEGATIVE); NITRITE URINE NEGATIVE (NEGATIVE); PROTEIN URINE TRACE mg/dL (NEGATIVE); SP GRAVITY URINE 1.016; TURBIDITY URINE CLEAR (CLEAR); UROBILINOGEN URINE 4 mg/dL (NORMAL)
[2020-01-01 05:21] LABS: UR EPITHELIAL CELLS <10 /HPF (<10); URINE BACTERIA NEGATIVE /HPF; URINE RBC <10 /HPF (<10); URINE WBC <10 /HPF (<10)
[2020-01-01] MEDS ORDERED: LEVAQUIN 500 MG/D5W 500 MG/100 ML IVPB IV ONE (05:38)
--- NOTE | 2020-01-01 07:51 | Diag Imaging Result Doc PS360 ---
EXAM: CHEST-1 VIEW INDICATION: sob TECHNIQUE: One view COMPARISON: 10/28/2019 FINDINGS: The lungs are grossly clear. There is no discrete pleural fluid collection or pneumothorax. The cardiomediastinal silhouette and central vasculature are grossly unremarkable. IMPRESSION: No evidence of acute pathology by plain radiograph. Electronically signed by Anoop Lagos 01/01/2020 7:49 AM
[2020-01-01] MEDS ORDERED: NICODERM PATCH TD PRN (11:25)
[2020-01-01] MEDS ORDERED: TYLENOL PO PRN (11:45)
[2020-01-01 12:26] LABS: ALB/GLOB RATIO 0.9; ALBUMIN 3.4 g/dL (3.5-5.0); CALCIUM 8.6 mg/dL (8.8-10.2); CREATININE 1.4 mg/dL (0.7-1.2); TOTAL BILIRUBIN 1.43 mg/dL (0.20-1.00)
--- NOTE | 2020-01-01 13:12 | Diag Imaging Result Doc PS360 ---
EXAM: US SCROTUM INDICATION: swelling TECHNIQUE: COMPARISON: None. FINDINGS: There is extremely severe scrotal edema. The testicles are grossly normal in echotexture with no discrete testicular cyst or mass. Both testicles exhibit normal Doppler flow. The right testicle measures 3.6 cm and the left testicle measures 2.7 cm in the greatest dimensions. There is a 6 mm left epididymal cyst. The right epididymis is not clearly identified. There are dilated vessels around the left testicle, mainly superiorly suggesting a varicocele. There is a small left hydrocele. IMPRESSION: 1.Severe scrotal edema. 2.Findings suggestive of a left-sided varicocele. 3.Small hydrocele on the left. Electronically signed by Anoop Lagos 01/01/2020 1:10 PM
[2020-01-01] MEDS: ULTRAM PO PRN ×2 (13:41→21:15)
[2020-01-01] MEDS: COREG PO SCH ×2 (13:42→21:15)
[2020-01-01] MEDS: LASIX IV SCH (16:07)
[2020-01-01 16:15] LABS: UR AMPHETAMINES QUAL PRESUMPTIVE POSITIVE (NONE DETECT); UR BARBITUATES QUAL NONE DETECTED (NONE DETECT); UR BENZODIAZEPIN QUAL NONE DETECTED (NONE DETECT); UR CANNABINOIDS QUAL NONE DETECTED (NONE DETECT); UR COCAINE QUAL NONE DETECTED (NONE DETECT); UR METHADONE QUAL NONE DETECTED (NONE DETECT); UR OPIATES QUAL NONE DETECTED (NONE DETECT); UR OXYCODONE QUAL NONE DETECTED (NONE DETECT); UR PCP QUAL NONE DETECTED (NONE DETECT)
--- NOTE | 2020-01-01 19:22 | HISTORY AND PHYSICAL ---
HISTORY OF PRESENT ILLNESS: This is a 59-year-old male with known CHF, but not very compliant. He has had increasing swelling in his scrotum and lower extremities for the last 4 days. He is complaining of worsening shortness of breath, and then around 3 this morning, his family brought him to the ER. He does not like to take his medications regularly. He says he runs out of them and that he cannot afford them, and that he will get back on them when he can afford them. He was complaining of lower extremity swelling. He does report orthopnea. Not clear how many pillows he sleeps on at night. It does not sound like he does actually; he lays flat and his legs are elevated. Again, has CHF and renal failure history, and he reports COPD, but has not been taking his medications regularly. Workup in the ER was consistent with a CHF exacerbation, and he was admitted as such. PAST MEDICAL HISTORY: 1. Hypertension. 2. CHF. 3. CKD, which is likely stage 2. SOCIAL HISTORY: He smokes about a pack a day. He has done that for 40 years. No alcohol, but he has used methamphetamine in the past. He is disabled. FAMILY HISTORY: Reviewed and noncontributory. REVIEW OF SYSTEMS: No nausea or vomiting. Positive chest pain, fatigue, malaise. Otherwise negative x10 point review of systems. PHYSICAL EXAMINATION: VITAL SIGNS: Blood pressure 118/64, heart rate 100, respiratory rate 18, temperature 98.4 degrees, 97% on room air. NECK: JVD on exam. CARDIOVASCULAR: Regular rate and rhythm. PULMONARY: Bilateral breath sounds, clear to auscultation. GI: Soft, nontender, nondistended. Bowel sounds are positive. EXTREMITIES: No clubbing or cyanosis. He had brawny kind of changes, dusky colored legs, with at least 1+ pitting edema up to mid lozoya. LYMPHATICS: No peripheral edema. NEUROLOGICAL: Nonfocal. LABS: White count is 5, hemoglobin and hematocrit 11 and 40, platelets 124,000. Creatinine of 1.4. ProBNP of 5956. UDS positive for amphetamines. ASSESSMENT: This is a 59-year-old gentleman who came from home with shortness of breath and significant swelling of his scrotum and lower extremities, known congestive heart failure, and acute systolic heart failure exacerbation. 1. Acute congestive heart failure. Ejection fraction is around 25%. We will work on trying to get him more compliant help with medications, and possibly good followup. Will repeat his echocardiogram. 2. Hypertension is stable. We have added Coreg. He is on Lasix, Entresto, and we will continue to monitor. 3. Chronic renal failure. Aware of diagnosis. We will keep a close eye on it with renal dysfunction in place. 4. History of hepatitis C. We will monitor his liver enzymes. 5. Chronic venous stasis, vascular insufficiency. We will get Wound Care to consider Unna boots on this patient and follow. 6. Scrotal edema. He had significant nonpitting edema of the scrotum with no paraphimosis, but we will get a scrotal ultrasound, but most likely this is just also 3rd spacing, possibly with hydroceles associated with 3rd spacing, so we will continue to monitor. DISPOSITION: Pending clinical status. cc: Julian Andrade MD
[2020-01-01] MEDS ORDERED: TOPROL XL PO SCH (21:00)
[2020-01-01] MEDS: ENTRESTO 24 MG-26 MG TABLET PO SCH (21:15)
[2020-01-02] MEDS: LASIX IV SCH ×3 (04:00→17:50)
[2020-01-02] MEDS: LOVENOX SUBQ SCH (05:55)
--- NOTE | 2020-01-02 06:35 | Diag Imaging Result Doc PS360 ---
EXAM: CHEST-1 VIEW HISTORY: chf TECHNIQUE: Single view COMPARISON: 01/01/2020 FINDINGS: The lungs are well expanded. The heart is mildly prominent. The vessels are not distended. There are no infiltrates. No effusion identified. IMPRESSION: No change Electronically signed by Rigo Duff 01/02/2020 6:33 AM
--- NOTE | 2020-01-02 07:28 | EKG Report ---
Test Performed on : 01/02/2020 06:57:11 AM Test Reason : Heart Failure Admission Blood Pressure : / mmHG Vent. Rate : 087 BPM Atrial Rate : 087 BPM P-R Int : 150 ms QRS Dur : 090 ms QT Int : 408 ms P-R-T Axes : 080 -09 104 degrees QTc Int : 490 ms Normal sinus rhythm. Nonspecific T wave abnormality Prolonged QT Abnormal ECG When compared with ECG of 01-JAN-2020 04:45, (Unconfirmed) No significant change was found Confirmed by Timur Garvey MD ([id number]) on 01/03/2020 6:11:19 PM
[2020-01-02 07:47] LABS: BASO# 0.04 X1000 (0.0-0.2); BASO% 0.7 % (0.0-0.8); EOS# 0.29 X1000 (0.0-0.7); EOS% 5.2 % (0.0-10.0); HEMATOCRIT 43.4 % (42.0-52.0); HEMOGLOBIN 13.4 g/dL (14.0-18.0); LYMPH# 1.11 X1000 (1.2-3.4); MCH 30.7 PG (27-31); MCHC 30.9 g/dL (33-37); MCV 99.3 FL (81-99); MONO# 0.76 X1000 (0.11-0.59); MONO% 13.7 % (1.7-9.3); MPV 11.1 FL (7.4-10.4); NEUT# 3.35 X1000 (1.4-6.5); NEUT% 60.4 % (42.2-75.2); PLT 136 X1000 (130-400); RBC 4.37 XMIL (4.7-6.1); RDW 15.3 % (11.5-14.5); WBC 5.55 X1000 (4.8-10.8)
[2020-01-02] MEDS: ENTRESTO 24 MG-26 MG TABLET PO SCH ×2 (08:28→21:20)
[2020-01-02] MEDS: COREG PO SCH ×2 (08:28→21:20)
[2020-01-02] MEDS ORDERED: ALDACTONE PO SCH (09:00)
[2020-01-02] MEDS ORDERED: COZAAR PO SCH (09:00)
--- NOTE | 2020-01-02 09:07 | ECHO REPORT ---
ORDER DATE: 01/01/2020 SUMMARY: 1. Technically difficult study due to limited acoustic window quality. Intravenous echo contrast agent, Optison, was utilized to enhance endocardial definition. 2. Aortic valve is trileaflet and opens normally on 2-dimensional images. The peak gradient across the aortic valve is approximately 5 mmHg. Mitral, tricuspid, and pulmonic valves are without gross structural abnormality. There is moderate mitral regurgitation and moderate tricuspid regurgitation. The estimated systolic PA pressure by Doppler is 30 mmHg. The aortic root is grossly normal in size. 3. Borderline left ventricular enlargement with normal wall thickness suggested. The estimated left ventricular ejection fraction appears to be approximately 25% in the setting of global hypokinesis. There is also paradoxical septal wall motion. The left atrium is mildly enlarged. The right ventricle and right atrium were subjectively mildly enlarged with mildly depressed right ventricular systolic function. 4. No pericardial effusion. 5. Inferior vena cava not well demonstrated. cc: MD Julian Will MD
[2020-01-02] MEDS ORDERED: CALMOSEPTINE OINTMENT TOP ONE (16:27)
--- NOTE | 2020-01-02 17:52 | PROGRESS NOTE ---
DATE: 01/02/2020 SUBJECTIVE: The patient has no major complaints. OBJECTIVE: Blood pressure is 90/65, heart rate of 89, respiratory rate 14, temperature 97.3 degrees, 97% on room air.Cardiovascular: Regular rate and rhythm. Pulmonary: Bilateral breath sounds clear to auscultation. GI: Soft, nontender, nondistended. Bowel sounds were positive. LABORATORY DATA: White count 5, hemoglobin 13 and hematocrit 43, platelets 136,000. ProBNP is 4043. PROBLEM LIST: 1. Congestive heart failure exacerbation ,acute systolic congestive heart failure exacerbation in the setting of noncompliance and amphetamine use. We will continue Amanda Mendez, he is on Coreg, however, his blood pressure is on the low end, so I will adjust those down a bit. Other than that, he seems better. 2. Amphetamine use. Discussed that this is probably not in his best interest and we will continue to follow. 3. Scrotal edema, which is probably secondary to his CHF. I do not think the edema was any worse than before, so we will continue to follow. Anticipate here another day or so. cc: Julian Andrade MD
[2020-01-03] MEDS: LOVENOX SUBQ SCH (05:48)
[2020-01-03 08:37] LABS: BASO# 0.06 X1000 (0.0-0.2); EOS# 0.41 X1000 (0.0-0.7); EOS% 6.9 % (0.0-10.0); HEMATOCRIT 44.1 % (42.0-52.0); HEMOGLOBIN 13.9 g/dL (14.0-18.0); LYMPH# 1.17 X1000 (1.2-3.4); LYMPH% 19.8 % (20.5-51.1); MCHC 31.5 g/dL (33-37); MCV 98.2 FL (81-99); MONO# 1.14 X1000 (0.11-0.59); MONO% 19.3 % (1.7-9.3); MPV 11.2 FL (7.4-10.4); NEUT# 3.14 X1000 (1.4-6.5); PLT 152 X1000 (130-400); RBC 4.49 XMIL (4.7-6.1); RDW 14.9 % (11.5-14.5); WBC 5.92 X1000 (4.8-10.8)
[2020-01-03] MEDS: COREG PO SCH ×2 (08:44→21:09)
[2020-01-03] MEDS: LASIX IV SCH (08:44)
[2020-01-03] MEDS: ALDACTONE PO SCH (08:44)
[2020-01-03] MEDS: ENTRESTO 24 MG-26 MG TABLET PO SCH ×2 (08:44→21:09)
[2020-01-03] MEDS ORDERED: LASIX PO SCH (09:00)
[2020-01-03 09:08] LABS: AGAP 7; BUN 23 mg/dL (8-22); CALCIUM 8.5 mg/dL (8.8-10.2); CHLORIDE 94 mmol/L (98-107); COSMO 275; CREATININE 1.2 mg/dL (0.7-1.2); ESTIMATED GFR > 60; GLUCOSE 91 mg/dL (70-104); SODIUM 136 mmol/L (136-145); TCO2 35 mmol/L (25-35)
[2020-01-03 09:18] LABS: POTASSIUM 4.9 mmol/L (3.5-5.1)
--- NOTE | 2020-01-03 19:26 | PROGRESS NOTE ---
DATE: 01/03/2020 SUBJECTIVE: Patient has no major complaints. OBJECTIVE: Blood pressure 103/51, heart rate of 101, respiratory rate of 18, temperature 98.4 degrees, 97% on room air.Cardiovascular: Regular rate and rhythm. Pulmonary: Bilateral breath sounds. Clear to auscultation. Gastrointestinal: Soft, nontender, nondistended. Bowel sounds are positive. H Extremities: Legs are still erythematous, but there is less swelling. LABORATORY DATA: White count is 5.9, hemoglobin and hematocrit 13 and 44, platelets 152,000. Basic was normal. He has been negative about 800 to 900 every day, so Lasix does seem to be working. PROBLEM LIST: 1. Acute systolic congestive heart failure exacerbation. We will continue diuresis for at least another 24 hours. His BUN and creatinine seem to be doing okay. His proBNP had been coming down, so we will follow. 2. Amphetamine use. We will advise on stopping. 3. Scrotal edema. That seems to be improving. His scrotal ultrasound, I think just showed edema, possibly a left-sided varicocele, so we will continue to monitor. cc: Julian Andrade MD
[2020-01-04] MEDS: ULTRAM PO PRN (03:58)
[2020-01-04] MEDS: LOVENOX SUBQ SCH (06:26)
[2020-01-04] MEDS: ALDACTONE PO SCH (08:30)
[2020-01-04] MEDS: ENTRESTO 24 MG-26 MG TABLET PO SCH (08:30)
[2020-01-04] MEDS: COREG PO SCH (08:30)
[2020-01-04] MEDS: LASIX IV SCH (08:30)
[2020-01-04 09:40] LABS: AGAP 7; BUN 21 mg/dL (8-22); CALCIUM 8.6 mg/dL (8.8-10.2); CHLORIDE 93 mmol/L (98-107); COSMO 271; CREATININE 1.1 mg/dL (0.7-1.2); ESTIMATED GFR > 60; GLUCOSE 123 mg/dL (70-104); POTASSIUM 4.6 mmol/L (3.5-5.1); SODIUM 133 mmol/L (136-145); TCO2 33 mmol/L (25-35)
[2020-01-04 16:00] VITALS: BP 91/50
== END 2020-01-04 18:49 | disposition home or self-care (01) | DRG 291 ==
LOC: ED 03:45 → 3N 08:19
PROVIDERS: ATTEND Internal Medicine